=== PATIENT | female | born 1970 | race African-American/Black ===

== ENCOUNTER 2019-10-14 08:08 | Emergency (ER) | payer BC, SELFPAY ==
[2019-10-14 08:20] VITALS: BP 124/65; PULSE 68; RESP 16; TEMP 37.2; O2SAT 100
--- NOTE | 2019-10-14 08:28 | ED.ABDPAIN ---
HPI - Abdominal Pain General Chief Complaint: Abdominal Pain Stated Complaint: Abdomen Pain Time Seen by Provider: 10/14/19 08:25 Source: patient and RN notes reviewed Mode of arrival: ambulatory Limitations: no limitations History of Present Illness HPI narrative: Patient presents today complaining of 3-day history of lower abdominal pain that radiates to her low back. Pain has been constant since onset. Denies any urinary symptoms to include dysuria, hematuria, frequency or urgency. Denies fever, nausea, vomiting, diarrhea, constipation. She currently rates her pain 10/10. She has been using OTC pain relieving patches without relief. MD elicited complaint: abdominal pain Related Data Home Medications Medication Instructions Recorded Confirmed Nexium 10/14/19 Allergies Allergy/AdvReac Type Severity Reaction Status Date / Time Sulfa (Sulfonamide Allergy Mild RASH Verified 05/07/15 15:01 Antibiotics) codeine AdvReac Unknown Verified 10/14/19 08:32 Review of Systems Review of Systems: Narrative: CONSTITUTIONAL: Denies body aches, fever, chills, or sweats. EYES: Denies visual changes, redness, or discharge. ENT: Denies rhinorrhea, congestion, sore throat, or otalgia. CARDIOVASCULAR: Denies chest pain, palpitations, or edema. RESPIRATORY: Denies cough or dyspnea. GASTROINTESTINAL: Denies nausea, vomiting, or diarrhea.+ Abdominal pain GENITOURINARY: Denies dysuria or hematuria. SKIN: Denies rash, itching, or wounds. MUSCULOSKELETAL: Denies back pain, joint pain, or myalgia. NEUROLOGIC: Denies headache, numbness, tingling, or weakness. PSYCH: Denies depression or anxiety. PMFSH Social History Social History Gender identity (if verbalized by the patient): Female Comments At time of signature, I have reviewed and agree with nursing past medical, surgical, social and family history unless otherwise noted. Please see nursing chart for further information. There is no relevant family history pertinent to the presenting complaint Exam Narrative: Exam Narrative: GENERAL: Well-appearing, well-nourished, and in no acute distress. HEAD: Normocephalic, atraumatic. EYES: EOMI. No redness or drainage. Conjunctivae normal. ENT: Mucous membranes pink and moist. NECK: Normal AROM. CHEST: No respiratory distress. Clear to auscultation. HEART: Regular rate and rhythm. No murmur appreciated. Normal peripheral pulses. ABDOMEN: Soft, nondistended, normal active bowel sounds. Tenderness with guarding and rebound to the suprapubic area and right lower quadrant.-CVAT MUSCULOSKELETAL: No bony tenderness. EXTREMITIES: Normal range of motion. No edema. SKIN: Warm, dry, no rash. NEURO: No focal deficits. Alert and oriented x3. Gait steady. PSYCH: Normal affect. No signs of depression or anxiety. Course Vital Signs Vital signs: Vital Signs Temperature 98.9 F 10/14/19 08:20 Pulse Rate 68 10/14/19 08:20 Respiratory Rate 16 10/14/19 08:20 Blood Pressure 124/65 10/14/19 08:20 Pulse Oximetry 100 10/14/19 08:20 Temperature 98.9 F 10/14/19 08:20 Pulse Rate 68 10/14/19 08:20 Respiratory Rate 16 10/14/19 08:20 Blood Pressure 124/65 10/14/19 08:20 Pulse Oximetry 100 10/14/19 08:20 Reviewed Transfer Transfered to: Iván Transfer rationale: Abdominal pain Accepting physician: Maria Fernanda Rahman PA-C [facility] - Abdominal Pain Differential Diagnosis Differential diagnosis: Likely abdominal pain, acute appendicitis and other (Ruptured ovarian cyst, UTI, ovarian torsion) Lab Data Attestation: I reviewed the patient's lab results. Labs: Urine Glucose Negative Reference Range: Negative Urine Bilirubin Negative Reference Range: Negative Urine Ketone Negative Reference Range: Negative Urine Specific [place] 1.025 Reference Range:1.001-1.035 Urine Blood Negative
== END 2019-10-14 08:40 | disposition short-term general hospital (02) ==
PROVIDERS: Emergency Provider Nurse Practitioner
DX: R10.30 Lower abdominal pain, unspecified (principal); K21.9 Gastro-esophageal reflux disease without esophagitis
CPT/HCPCS: 81003; 99212; G0463

== ENCOUNTER 2019-10-14 08:56 | Emergency (ER) | payer BC, SELFPAY ==
--- NOTE | ~2019-10-14 | CT_ITS ---
EXAMINATION: CT abdomen pelvis w con EXAM DATE: 10/14/2019 10:38 INDICATION: Abdominal, left lower quadrant pain. TECHNIQUE: Spiral CT of the abdomen and pelvis was performed following intravenous injection of 100 m L Omnipaque 350. Axial, coronal and sagittal images were reviewed. The dose-length product (DLP) fo r this examination was 280.98 mGy-cm. The exposure was tailored according to patient size (auto mA e xposure control), and iterative reconstruction (ASIR) was used as additional dose reduction technique . Comparison is made to prior examination from 02/01/2017. FINDINGS: The liver, spleen, adrenal glands and pancreas are unremarkable. Gallbladder is unremarkab le. No biliary obstruction. Portal and splenic veins are patent. Kidneys enhance symmetrically. T here is no hydronephrosis. There are multiple degenerating fibroids, without uterus significantly en larged, measuring 16 cm in craniocaudal dimension by 11 cm diameter. The gonadal veins are enlarged t o accommodate this fibroid uterus. The ovaries appear normal in size. The bladder is unremarkable. Tr mindy free pelvic fluid. There is no retroperitoneal or pelvic lymphadenopathy. The appendix is normal. The stomach and small bowel are unremarkable. There is expected amount of c olonic stool. No free intraperitoneal gas. The heart is normal in size. There are no pericardial or pleural effusions. The lung bases are unremarkable. The bones are unremarkable. IMPRESSION: 1. Significantly enlarged uterus with multiple degenerating fibroids, dilated gonadal veins. 2. No acute intra-abdominal findings. Reviewed, dictated and finalized at location A. 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
--- NOTE | 2019-10-14 09:07 | ED.ABDPAIN ---
HPI - Abdominal Pain General Chief Complaint: Abdominal Pain Stated Complaint: Back and low abd pain Time Seen by Provider: 10/14/19 09:03 Source: patient Mode of arrival: ambulatory Limitations: no limitations History of Present Illness HPI narrative: Pt is a 48 y/o female who presents to the ED with c/o progressively worsening, lower ABD pain that started Sunday (3 days ago). She reports associated lower back pain. She also notes that she had chills and sweats this morning. Pt states that she had this pain when she was Dx with a UTI in the past. She notes that she had fibroids in her uterus that she has chronic pain from. Her chronic pain is normally alleviated by taking pain medication. Pt has taken pain medication with no relief. She has OTC pain patches on as well. Pt denies fever, vomiting, dysuria, diarrhea, constipation, hematuria, frequency, CP, cough, or congestion. MD elicited complaint: abdominal pain Onset (ago): day(s) (3) Pain Consistency: other (progressively worsening) Location: other (lower ABD) Relieving factors: nothing Associated symptoms: other (lower back pain, chills, sweats) Treatments prior to arrival: other (pain medicine) Related Data Home Medications Medication Instructions Recorded Confirmed Nexium 40 mg PO DAILY 10/14/19 10/14/19 Allergies Allergy/AdvReac Type Severity Reaction Status Date / Time Sulfa (Sulfonamide Allergy Mild RASH Verified 10/14/19 09:19 Antibiotics) codeine AdvReac Unknown Verified 10/14/19 09:19 Review of Systems Review of Systems: Narrative: CONSTITUTIONAL: Denies fever. Reports chills and sweats. ENT: Denies congestion CARDIOVASCULAR: Denies chest pain. RESPIRATORY: Denies cough. GASTROINTESTINAL: Reports lower abdominal pain. Denies vomiting, constipation, or diarrhea. GENITOURINARY: Denies dysuria, frequency, or hematuria. MUSCULOSKELETAL: Reports lower back pain. All systems reviewed & are unremarkable except as noted in HPI and below PMFSH Past Medical History Medical History (Updated 10/14/19 @ 11:18 by Ciera Keith MD) Fibroid uterus GERD (gastroesophageal reflux disease) Seasonal allergies UTI (urinary tract infection) Surgical History Surgical History (Updated 10/14/19 @ 09:19 by Cuauhtemoc Harmon) H/O section Social History Social History (Updated 10/14/19 @ 09:19 by Cuauhtemoc Harmon) Smoking status: Never smoker Gender identity (if verbalized by the patient): Female Exam Narrative: Exam Narrative: GENERAL: Well-appearing, well-nourished, and in no acute distress. HEAD: Normocephalic, atraumatic. EYES: PERRLA and EOMI. ENT: Nares clear, no rhinorrhea or epistaxis. Mucous membranes moist. NECK: Supple. CHEST: Clear to auscultation. No respiratory distress. HEART: Tachycardic with regular rhythm. No murmur heard. Normal peripheral pulses. ABDOMEN: Soft, suprapubic tenderness, nondistended, normal active bowel sounds. No flank tenderness. Thorax: No midline cervical, thoracic, lumbar spinal tenderness. No step-offs or deformities. EXTREMITIES: Normal range of motion. No edema. SKIN: Warm, dry, no rash. NEURO: No focal deficits. Alert and oriented X3. EOMs intact without nystagmus. No facial droop/asymmetry noted bilaterally. Grimace intact. Intact sensation in face. Hearing intact bilaterally. Shoulder shrug intact. Strength 5/5 bilateral upper extremities. Strength 5/5 bilateral lower extremities. Reflexes 2+ patellar. Heel to ferrer intact bilaterally. Ambulatory with a narrow base, steady gait, no ataxia. Course Consultations Consultation #1: Discussed case with Dr. Hayes the principal bioinformatics specialist. Agrees to see pt as outpatient or inpatient. Recommends obtaining anemia panel. Date: 10/14/19 Time: 11:17 Vital Signs Vital signs: Vital Signs Temperature 36.7 C 10/14/19 09:17 Pulse Rate 104 H 10/14/19 09:17 Respiratory Rate 20 10/14/19 09:17 Blood Pressure 121/69 10/14/19 09:17 Pulse Oximetry 100 10/14/19 09:17
[2019-10-14 09:17] VITALS: BP 121/69; PULSE 104; RESP 20; TEMP 36.7; O2SAT 100
[2019-10-14] MEDS: ONDANSETRON INJ 4 MG/2 ML VIAL IV PUSH (09:37)
[2019-10-14] MEDS: MORPHINE SULFATE 4 MG/ML INJ 2 MG IV PUSH (09:37)
[2019-10-14] MEDS: SODIUM CHLORIDE 0.9% IV 2,000 ML 999 ML IV CONT (09:38)
[2019-10-14 09:53] LABS: Basophils Percent Auto 0.3 % (0.2-1.2); Eosinophils Percent Auto 0.3 % (0-4.4); Hematocrit 25.6 % (37.0-47.0); Hemoglobin 7.1 g/dL (12.0-15.0); Immature Granulocyte Absolute 0.06 K/mm3 (0.00-0.031); Immature Granulocyte Percent A 0.5 % (0-0.5); Immature Platelet Fraction Pct 4.9 % (0.9-11.2); Lymphocytes Absolute Auto 2.18 K/mm3 (0.9-3.2); Lymphocytes Percent Auto 17.5 % (18.3-44.2); Mean Corpuscular HGB Conc 27.7 g/dl (32-36); Mean Corpuscular Hemoglobin 19.2 pg (26-34); Mean Corpuscular Volume 69.2 fl (80-100); Mean Platelet Volume 11.2 fl (7.4-10.4); Neutrophils Absolute Auto 9.2 K/mm3 (1.3-6.7); Neutrophils Percent Auto 73.4 % (45.5-73.1); Platelet Count Result 249 k/mm3 (150-375); Red Cell Distribution Width 18.6 % (11.5-14.5); White Blood Count 12.5 K/mm3 (4.5-10.0)
[2019-10-14 10:03] LABS: Lactic Acid Reflex 0.6 mmol/L (0.7-2.1)
[2019-10-14 10:04] LABS: Alanine Aminotransferase 21 U/L (4-35); Albumin Level 3.6 g/dL (3.5-5.1); Alkaline Phosphatase 65 U/L (38-126); Aspartate Amino Transferase 26 U/L (14-36); Bilirubin,Total 0.2 mg/dL (0.2-1.3); Blood Urea Nitrogen 9 mg/dL (7-17); Calcium 8.5 mg/dL (8.4-10.2); Carbon Dioxide 24 mmol/L (22-30); Chloride 100 mmol/L (98-107); Estimated CRCL calculation 76 ml/min; Estimated Glomerular Filt Rate > 60; Glucose 106 mg/dL (65-105); Lipase 103 U/L (23-300); Potassium 3.2 mmol/L (3.4-5.0); Sodium 134 mmol/L (137-145)
[2019-10-14 10:20] LABS: Hypochromasia 2+ (NORMAL); Microcytosis 1+ (NORMAL); Ovalocytes 1+ (NORMAL); Platelet Estimate Adequate (Adequate)
[2019-10-14 11:03] VITALS: BP 104/61; PULSE 92; RESP 18; O2SAT 100
[2019-10-14 11:35] LABS: Add Urine Microscopic? YES; Appearance Urine Clear (Clear); Bacteria Urine Trace /hpf; Bilirubin Urine Negative (Negative); Blood Urine Negative (Negative); Color Urine Straw (Yellow); Glucose Urine UA Negative (Negative); Ketones Urine Negative (Negative); Leukocyte Esterase Ur Trace LEU/UL (Negative); Mucus Urine Rare /lpf; Nitrate Urine Negative (Negative); Protein Urine Negative (Negative); RBC Urine 0-2 /hpf (0-2); Specific Grav Ur 1.009 (1.001-1.035); Squamous Epithelial Cell Urine Occasional /hpf (Few); Urobilinogen Urine Negative mg/dL (<2.0); WBC Urine 0-3 /hpf
[2019-10-14 11:38] LABS: Iron 18 ug/dL (37-170)
[2019-10-14 11:47] LABS: Percent Iron Saturation 5 % (20-50)
[2019-10-14 12:15] LABS: Ferritin 5.97 ng/mL (6.24-137)
[2019-10-14 12:16] VITALS: BP 101/69; PULSE 90; RESP 18; O2SAT 98
[2019-10-14 12:47] LABS: Folic Acid 13.3 ng/mL (2.76->20)
== END 2019-10-14 12:28 | disposition home or self-care (01) ==
PROVIDERS: Emergency Provider Emergency Medicine
DX: D64.9 Anemia, unspecified (principal); K21.9 Gastro-esophageal reflux disease without esophagitis; Z87.440 Personal history of urinary (tract) infections
CPT/HCPCS: 36415; 74177; 80053; 81001; 82607; 82728; 82746; 83540; 83550; 83605; 83690; 84443; 85025; 85055; 96365; 96375; 99284; J0131; J2270; J2405; J7030; Q9967

== ENCOUNTER 2020-01-01 10:16 | Outpatient (CLI) | payer BC, SELFPAY ==
--- NOTE | ~2020-01-01 | MM_ITS ---
EXAMINATION: MM screening [facility] BI w eladio HISTORY: Screening mammogram TECHNIQUE: Craniocaudal and mediolateral oblique 3-D tomosynthesis images were obtained and synthetic 2-D images were generated. CAD analysis was submitted and interpreted. COMPARISON: 11/27/2018, 02/13/2017, 02/02/2016 BREAST PARENCHYMAL COMPOSITION: The breasts are heterogeneously dense, which may obscure small masses . FINDINGS: There is no evidence of suspicious mass, calcification, or architectural distortion to sugg est malignancy in either breast. There has been no suspicious interval change. IMPRESSION: 1. No mammographic evidence of malignancy. 2. Recommend routine screening mammography in one year. BI-RADS Category 1: Negative Reviewed, dictated and finalized at location A.
== END 2020-01-01 10:17 | disposition home or self-care (01) ==
PROVIDERS: Visit Provider Obstetrics & Gynecology
DX: Z12.31 Encounter for screening mammogram for malignant neoplasm of breast (principal)
CPT/HCPCS: 77063; 77067

== ENCOUNTER 2021-02-21 10:28 | Outpatient (CLI) | payer BC, SELFPAY ==
--- NOTE | ~2021-02-21 | MM_ITS ---
EXAMINATION: MM screening [facility] BI w eladio HISTORY: Screening mammogram TECHNIQUE: Craniocaudal and mediolateral oblique 3-D tomosynthesis images were obtained and synthetic 2-D images were generated. CAD analysis was submitted and interpreted. COMPARISON: 01/01/2020, 11/27/2018, 02/13/2017 BREAST PARENCHYMAL COMPOSITION: The breasts are heterogeneously dense, which may obscure small masses . FINDINGS: There is no evidence of suspicious mass, calcification, or architectural distortion to sugg est malignancy in either breast. There has been no suspicious interval change. IMPRESSION: 1. No mammographic evidence of malignancy. 2. Recommend routine screening mammography in one year. BI-RADS Category 1: Negative Reviewed, dictated and finalized at location A.
== END 2021-02-21 10:29 | disposition home or self-care (01) ==
LOC: ANHIMG 10:32
PROVIDERS: Visit Provider Advanced Practice Midwife
DX: Z12.31 Encounter for screening mammogram for malignant neoplasm of breast (principal)
CPT/HCPCS: 77063; 77067

== ENCOUNTER 2022-08-08 15:01 | Outpatient (CLI) | payer BC, SELFPAY ==
--- NOTE | ~2022-08-08 | MM_ITS ---
EXAMINATION: MM screening [facility] BI w eladio HISTORY: Screening mammogram TECHNIQUE: Craniocaudal and mediolateral oblique 3-D tomosynthesis images were obtained and synthetic 2-D images were generated. CAD analysis was submitted and interpreted. COMPARISON: 02/21/2021, 01/01/2020, 11/27/2018 BREAST PARENCHYMAL COMPOSITION: The breasts are heterogeneously dense, which may obscure small masses . FINDINGS: No suspicious mass, calcification, or architectural distortion are identified in either loi ast to suggest malignancy. There has been no suspicious interval change. IMPRESSION: 1. No mammographic evidence of malignancy. 2. Recommend routine screening mammography in one year. BI-RADS Category 1: Negative Reviewed, dictated and finalized at location A. 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
== END 2022-08-08 15:02 | disposition home or self-care (01) ==
PROVIDERS: PCP Nurse Practitioner; Visit Provider Nurse Practitioner
DX: Z12.31 Encounter for screening mammogram for malignant neoplasm of breast (principal)
CPT/HCPCS: 77063; 77067

== ENCOUNTER 2024-01-28 07:57 | Outpatient (CLI) | payer OTHER, SELFPAY ==
--- NOTE | ~2024-01-28 | MM_ITS ---
EXAMINATION: MM screening [facility] w eladio HISTORY: Screening TECHNIQUE: Craniocaudal and mediolateral oblique 3-D tomosynthesis images were obtained and synthetic 2-D images were generated. CAD analysis was submitted and interpreted. COMPARISON: Comparison to multiple prior studies sequentially, with oldest reviewed study dated 02/01.. BREAST PARENCHYMAL COMPOSITION: Dense: The breasts are heterogeneously dense, which may obscure small masses FINDINGS: There is no evidence of suspicious mass, calcification, or architectural distortion to sugg est malignancy in either breast. There has been no suspicious interval change. IMPRESSION: 1. No mammographic evidence of malignancy. 2. Recommend routine screening mammography in one year. BI-RADS Category 1: Negative Reviewed, dictated and finalized at location A.
== END 2024-01-28 07:58 | disposition home or self-care (01) ==
LOC: ANHIMG 08:00
PROVIDERS: PCP Physician Assistant; Visit Provider Physician Assistant
DX: Z12.31 Encounter for screening mammogram for malignant neoplasm of breast (principal)
CPT/HCPCS: 77063; 77067

== ENCOUNTER 2024-04-23 08:29 | Emergency (ER) | payer OTHER, SELFPAY ==
--- NOTE | ~2024-04-23 | XR_ITS ---
EXAMINATION: XR chest 2V 04/23/2024 09:11 INDICATION: Chest pain. History of reflux. PROCEDURE: 2 view chest COMPARISON: No prior studies for comparison. FINDINGS: The lungs are clear. The cardiomediastinal silhouette is within normal limits. There are no pleural effusions. There is no pneumothorax suspected. IMPRESSION: 1: NO ACUTE CARDIOPULMONARY DISEASE. Reviewed, dictated and finalized at location B.
--- NOTE | 2024-04-23 08:30 | ECG_ITS ---
Test Date: 2024-04-23 08:38:00 Measurements Intervals [place] Rate: 98 P: 35 NE: 166 QRS: 5 QRSD: 68 T: -6 QT: 358 QTc: 459 Interpretive Statements SINUS RHYTHM LOW QRS VOLTAGE IN PRECORDIAL LEADS [QRS DEFLECTION < 1.0 mV IN CHEST LEADS] No previous ECG available for comparison Electronically Signed On 04-23-2024 09:30:51 CDT by Sharon Jimenez M.D.
[2024-04-23 08:34] VITALS: BP 132/87; PULSE 97; RESP 20; TEMP 36.6; O2SAT 100
[2024-04-23 08:39] VITALS: PULSE 89; O2SAT 100
[2024-04-23 08:43] LABS: Basophils Percent Auto 0.3 % (0.2-1.2); Eosinophils Absolute Auto 0.1 K/mm3 (0-0.3); Eosinophils Percent Auto 1.7 % (0-4.4); Hematocrit 43.9 % (37.0-47.0); Hemoglobin 15.3 g/dL (12.0-15.0); Immature Granulocyte Absolute 0.02 K/mm3 (0.00-0.031); Immature Granulocyte Percent A 0.3 % (0-0.5); Lymphocytes Absolute Auto 3.01 K/mm3 (0.9-3.2); Lymphocytes Percent Auto 40.4 % (18.3-44.2); Mean Corpuscular HGB Conc 34.9 g/dl (32-36); Mean Corpuscular Hemoglobin 31.2 pg (26-34); Mean Corpuscular Volume 89.4 fl (80-100); Monocytes Absolute Auto 0.5 K/mm3 (0.1-0.6); Monocytes Percent Auto 6.2 % (2.6-8.5); Neutrophils Absolute Auto 3.8 K/mm3 (1.3-6.7); Neutrophils Percent Auto 51.1 % (45.5-73.1); Platelet Count Result 210 k/mm3 (150-375); Red Blood Count 4.91 M/mm3 (4.2-5.4); Red Cell Distribution Width 11.9 % (11.5-14.5); White Blood Count 7.5 K/mm3 (4.5-10.0)
[2024-04-23 08:53] LABS: INR 0.9; Prothrombin Time 12.5 Seconds (11.1-14.7)
[2024-04-23 08:54] LABS: Partial Thromboplastin Time 28.5 Seconds (22.3-36.8)
[2024-04-23 08:57] LABS: Alanine Aminotransferase 22 U/L (6-35); Albumin Level 4.4 g/dL (3.5-5.1); Alkaline Phosphatase 73 U/L (38-126); Anion Gap 12 mmol/L (4-12); Aspartate Amino Transferase 29 U/L (14-36); Bilirubin,Total 0.5 mg/dL (0.2-1.3); Blood Urea Nitrogen 12 mg/dL (7-17); Calcium 9.4 mg/dL (8.4-10.2); Carbon Dioxide 26 mmol/L (22-30); Chloride 100 mmol/L (98-107); Estimated CRCL calculation 60 ml/min; Estimated Glomerular Filt Rate > 60; Glucose 126 mg/dL (65-110); Lipase 161 U/L (23-300); Potassium 3.3 mmol/L (3.4-5.0); Sodium 138 mmol/L (137-145)
[2024-04-23 09:01] VITALS: BP 132/84; PULSE 79; RESP 20; O2SAT 100
[2024-04-23 09:09] LABS: Troponin I < 0.012 ng/mL (0.000-0.034)
[2024-04-23 09:36] LABS: D Dimer < 0.27 ug/mL (<0.48)
[2024-04-23 09:45] LABS: NT Pro B Type Natriuretic Pept < 20 pg/mL (19.9-100)
--- NOTE | 2024-04-23 09:53 | ED.CHESTPAIN ---
HPI - Chest Pain General Chief Complaint: Chest Pain Stated Complaint: CHEST PAIN Time Seen by Provider: 04/23/24 09:01 Source: patient Mode of arrival: ambulatory Limitations: no limitations History of Present Illness HPI narrative: This is a 53-year-old female With PMH of GERD, uterine fibroids who presents to the ED with chief complaint of chest pain this started around 0730 this morning. States that she let her dog outside for a walk in a started shortly after. States that when she bent over, she felt like she had a lot of gas in her abdomen and this is what set off the chest pain. No association of the pain with exertion. States the pain is in the middle of the chest and radiates to the left arm. Described pain as dull. No relief with antacid an aspirin prior to arrival. Denies fevers, chills, recent illness, shortness of breath, cough, back pain, numbness, weakness. Related Data Home Medications Medication Instructions Recorded Confirmed Nexium 40 mg PO DAILY 10/14/19 10/14/19 Allergies Allergy/AdvReac Type Severity Reaction Status Date / Time Sulfa (Sulfonamide Allergy Mild RASH Verified 04/23/24 08:43 Antibiotics) codeine AdvReac Unknown Verified 04/23/24 08:43 Review of Systems Review of Systems: All systems as dictated in [facility] Past Medical History Medical History (Updated 04/23/24 @ 12:06 by Dmitry Montgomery PA-C) Fibroid uterus GERD (gastroesophageal reflux disease) Seasonal allergies UTI (urinary tract infection) Surgical History Surgical History (Updated 10/14/19 @ 09:19 by Cuauhtemoc Harmon) H/O section Social History Social History (Updated 10/14/19 @ 09:19 by Cuauhtemoc Harmon) Smoking status: Never smoker Gender identity (if verbalized by the patient): Female Exam Narrative: GENERAL: Well-appearing, well-nourished, and in no acute distress. HEAD: Normocephalic, atraumatic. EYES: PERRLA and EOMI. ENT: Nares clear, no rhinorrhea or epistaxis. Mucous membranes moist. Oropharynx without tonsillar hypertrophy exudate or other lesions. NECK: Supple. No adenopathy or masses. CHEST: No respiratory distress. Clear to auscultation. No wheezes rales or rhonchi HEART: Regular rate and rhythm. No murmur heard. Normal peripheral pulses. ABDOMEN: Soft, nontender, nondistended, normal active bowel sounds. MSK: Normal range of motion. No edema. SKIN: Warm, dry, no rash. NEURO: Alert and oriented x4. No focal deficits. PSYCH: Normal mood and affect. Course Vital Signs Vital signs: Vital Signs Temperature 97.8 F 04/23/24 08:34 Pulse Rate 97 04/23/24 08:34 Respiratory Rate 20 04/23/24 08:34 Blood Pressure 132/87 04/23/24 08:34 Pulse Oximetry 100 04/23/24 08:34 Oxygen Delivery Room Air 04/23/24 08:34 Temperature 98.4 F 04/23/24 11:25 Pulse Rate 70 04/23/24 12:00 Respiratory Rate 13 04/23/24 12:00 Blood Pressure 123/77 04/23/24 11:25 Pulse Oximetry 99 04/23/24 12:00 Oxygen Delivery Room Air 04/23/24 08:39 MDM - Chest Pain MDM Narrative Medical decision making narrative: This is a 53-year-old female presenting for chief complaint of chest pain and epigastric discomfort. Vitals are normal. Exam is benign overall. ECG shows nonspecific T-wave changes but no ST depression or acute ischemia. Lab work today is grossly unremarkable. D-dimer negative and troponins are negative at 0 and 3 hours. Chest x-ray normal. Repeat ECG is the same. No increasing repeat chest pain. Heart score is 3. Pt will be discharged in stable condition. Return precautions given and supportive measures discussed. Pt is understanding and agreeable with plan for discharge and follow-up with PCP. Lab Data 04/23/24 08:37 04/23/24 08:37 Labs: Lab Results 04/23/24 04/23/24 Range/Units 08:37 11:12 WBC 7.5 (4.5-10.0) K/mm3 RBC 4.91 (4.2-5.4) M/mm3 Hgb 15.3 H D (12.0-15.0) g/dL
--- NOTE | 2024-04-23 11:14 | ECG_ITS ---
Test Date: 2024-04-23 11:16:00 Measurements Intervals [place] Rate: 65 P: 43 [place]: 165 QRS: 4 QRSD: 73 T: -13 QT: 406 QTc: 425 Interpretive Statements SINUS RHYTHM LOW QRS VOLTAGE IN PRECORDIAL LEADS [QRS DEFLECTION < 1.0 mV IN CHEST LEADS] Compared to ECG 04/23/2024 08:38:00 No significant changes Electronically Signed On 04-23-2024 13:04:33 CDT by Sharon Jimenez M.D.
[2024-04-23 11:21] VITALS: PULSE 64; RESP 16; O2SAT 100
[2024-04-23 11:25] VITALS: BP 123/77; PULSE 65; RESP 18; TEMP 36.9; O2SAT 100
[2024-04-23] MEDS: FAMOTIDINE 20 MG/2 ML VIAL IV PUSH (11:32)
[2024-04-23 11:50] LABS: Troponin I < 0.012 ng/mL (0.000-0.034)
[2024-04-23 12:00] VITALS: PULSE 70; RESP 13; O2SAT 99
== END 2024-04-23 12:18 | disposition home or self-care (01) ==
PROVIDERS: Emergency Medicine; Emergency Provider Physician Assistant; PCP Physician Assistant
DX: R07.89 Other chest pain (principal); K21.9 Gastro-esophageal reflux disease without esophagitis; Z87.440 Personal history of urinary (tract) infections
CPT/HCPCS: 36415; 71046; 80053; 83690; 83880; 84484; 85025; 85380; 85610; 85730; 93005; 96374; 99284

== ENCOUNTER 2025-06-30 14:02 | Outpatient (CLI) | payer OTHER, SELFPAY ==
--- NOTE | ~2025-06-30 | MM_ITS ---
EXAMINATION: MM screening [facility] BI w eladio HISTORY: Screening TECHNIQUE: Craniocaudal and mediolateral oblique 3-D tomosynthesis images were obtained and synthetic 2-D images were generated. CAD analysis was submitted and interpreted. COMPARISON: Comparison to multiple prior studies sequentially, with oldest reviewed study dated 02/13/2017. BREAST PARENCHYMAL COMPOSITION: Not dense: There are scattered areas of fibroglandular density. FINDINGS: There is no evidence of suspicious mass, calcification, or architectural distortion to suggest malignancy in either breast. There has been no suspicious interval change. IMPRESSION: 1. No mammographic evidence of malignancy. 2. Recommend routine screening mammography in one year. BI-RADS Category 1: Negative Reviewed, dictated and finalized at location O.
--- OUTSIDE RECORDS SUMMARY | 2025-06-30 17:30 | XMS_ITS | Data Portability ---
Author Organization [facility] Address [address] [place] [place] [address] [place] [address] Care Team Providers Care Interactive Media Marketing Specialist Name Role Phone SIDNEY CHRISTIAN Primary Care Provider [phone] Assessment Encounter Date Assessment Date Assessment LastModified by Organization Details LastModified Time 12/29/2019 12/29/2019 Annual gynecological exam performed. Patient will come back in a year unless there are new symptoms. Pap done. She has mammogram scheduled in 3 days. Declines contraception as she is not sexually active [email or web address] Not available 12/29/2019 10:26:35 02/08/2022 02/08/2022 Annual gynecological exam performed. Patient will come back in a year unless there are new symptoms. Not available 02/07/2022 15:03:53 Plan of Treatment Reminders Order Date Submit Date Provider Last Modified By Organization Details Last Modified Time Details Appointments None recorded. Lab hormone panel, serum or plasma 2021 022 [facility] (Lab), [address] [place], [address], 2 06:07:12 TSH, serum or plasma 2021 022 [facility] (Lab), [address] [place], [address], 2 06:07:12 urinalysis , dipstick 2019 020 [facility], [place], [address], 0 17:24:30 Referral None recorded. Procedures None recorded. Surgeries None recorded. Imaging MAMMO, screening, bilateral 2021 022 BREANNA [facility], [address], [place], [address], 2 11:42:37 Medication Orders None recorded. Patient TargetsNo targets recorded. Patient InstructionsNo instructions recorded. Reason for Referral None Reported. Results Created Date Observation Date Name Description Value Unit Range Abnormal Flag Note LastModifiedBy Organization Detail LastModifiedTime 12/29/19 20 12/30/2019 pap, LB Pap test thin prep Negati ve for Intrae pithel ial Lesion or Malign cherise normal ACCES LISBETH #: [id number] Sourc e: Cervi maverick/E ndoce rvica l LMP: 09/10 Date Taken : 12/28 Speci men Type: ThinP rep Vial Date Repor parish: 2019 Clini maverick Data: Cytot ech: Merna Andradekle y, CT( CP) Date Repor parish: 2019 Speci men Adequ acy: Satis facto ry for evalu ation No endoc ervic al/tr ansfo rmati on zone compo nent prese nt Gener al Categ oriza tion: NEGAT ONEIL FOR INTRA EPITH ELIAL LESIO N OR MALIG KEN This speci men has been tato zed by the ThinP rep Imagi ng Syste m, an inter activ e compu ter syste m which rusty ts the lab in the scree celestino of ThinP rep Pap Test slide s. Follo wing imagi ng, the slide was revie wed by a Cytot echno logis t and/o r Patho logis t. D N A A S S A Y S R E P O R T TEST NAME RESUL TS ----- ---- ----- -- HPV High Risk Scree n (TMA) ThinP rep Vial The human papil lomav irus (HPV) High Risk Screjoleen n is an FDA-a pprov ed in-vi tro ampli fied nucle ic acid test for the quali tativ e detec tion of E6/E7 viral mRNA. Resul ts shoul d be corre lated with patie nt prese ntati on, histo ry, cervi maverick cytol ogy and other clini maverick and labor atory findi ngs. See https ://Baoku/s ites/ defau lt/fi 018-0 3/- 95920 _002_ .pd f for furth er infor matio n. Test perfo rmed by [facility], d/b/a [facility], [address] [facility], [place] [address] , Kayode Babcock ra, , Labor atory Dire tor. HPV High Risk *HPV NOT DETEC PARISH (TYPE S 16, 18, 31, 33, 35, 39, 45, 51, 52, 56, 58, 59, 66, 68) *HPV: The human papil lomav irus (HPV) High Risk Sonya rose is an FDA-a pprov ed in-vi tro ampli fied nucle ic acid test for the quali tativ e detec tion of E6/E7 viral mRNA. Resul herrera tolentino d be corre lated with patie nt prese ntati on, histo ry, cervi maverick cytol ogy and other clini maverick and labor atory findi ngs. See https ://Baoku/s ites/ defau lt/fi -0 3/- 02607 _002_ 01.pd f for furth er infor matio n. Test perfo rmed by [employer] [facility], d/b/a Rosa Maria roup, [address] [facility], [place] [address] , Kayode Babcock ra, DO, Labor atory Dire tor. End of Repor t Techn ical servi keegan provi ded by [employer] [facility], d/b/a Brit[facility] r[facility], [address] [place] [address] Cortez Betancourt MD, Labor atory Direc tor. Case revie wed and diagn osis rende red at [facility], [facility], d/b/a [facility], [address] [place], [place] [address] Cortez Betancourt MD, Labor atory Direc tor. CONFI DENTI AL Not Available [facility]) [facility] [address], [place], [address], 12/30/2019 12:20:29 12/29/19 20 12/30/2019 HPV DNA, high- risk HPV high risk NOT DETECT ED normal Not Available [facility] ([facility]) [facility] [address], [place], [address], 12/30/2019 12:20:29 02/09/20 22 02/08/2022 TSH, REFLE X FREE T4 TSH 2.46 uIU/m L 0.30-5 .33 Not Available [facility] (Lab) [address] [facility], [place], [address], 02/09/2022 06:07:12 02/09/20 22 02/08/2022 FSH, LH, ESTRA DIOL estradiol <5.0 pg/mL This assay was perfo rmed using [employer] ratio n reage nts and test kits. Value s obtai eugenia with other assay metho ds or kits canno t be used inter aguero eably . Femal e Estra diol Range s: Folli cular phase 12.4- 233 pg/mL Ovula tion phase 41.0- 398 pg/mL Lutea l phase 22.3- 341 pg/mL Postm enopa usal< 5-138 pg/mL Healt hy Pregn ant Women 1st Trime ster1 54-32 43 pg/mL 2nd Trime ster1 561-2 1280 pg/mL 3rd Trime ster8 525-> 10506 pg/mL Not Available [facility] (Lab) [address], [place], [address], 02/09/2022 06:07:12 02/09/20 22 02/08/2022 FSH, LH, ESTRA DIOL FSH 63.0 mIU/m L This assay was perfo rmed using [employer] ratio n reage nts and test kits. Value s obtai eugenia with other assay metho ds or kits canno t be used inter aguero eably . Femal es Folli cular : 3.5-1 2.5 mIU/m L Ovula tion: 4.7-2 1.5 mIU/m L Lutea l: 1.7-7 .7 mIU/m L Postm enopa use: 25.8- 134.8 mIU/m L Not Available [facility] (Lab) [address] [place], [address], 02/09/2022 06:07:12 02/09/20 22 02/08/2022 FSH, LH, ESTRA DIOL LH 51.6 mIU/m L This assay was perfo rmed using [employer] n reage nts and test kits. Value s obtai eugenia with other assay metho ds or kits canno t be used inter [facility] . Femal es Mid-F ollic ular: 2.4-1 2.6 mIU/m L Mid-C ycle: 14.0- 95.6 mIU/m L Mid-L uteal : 1.0-1 1.4 mIU/m L Postm enopa use: 7.7-5 8.5 mIU/m L Not Available [facility] (Lab) [address] [place], [address], 02/09/2022 06:07:12 02/09/20 22 02/08/2022 IMAGE GUIDE D PAP AND HPV REGAR DLESS image guided Pap, HPV regardless of Pap result SEE RESULT S BELOW CASE REPOR T: Cytol ogy Gynec ologi maverick Repor t Case: [id number] Autho chandu g Provi debora: Adia Gonzalez, SHANI Colle cted: 02/08 1414 Order ing Locat ion: [place] [facility] Recei rosemary: 02/09 0208 First Scree n: Marlene Santamaria , CT Speci men: Scree celestino Pap - Image d, Cervi x STATE MENT OF ADEQU ACY: Satis facto ry for evalu ation Trans forma tion zone compo nent prese nt FINAL DIAGN OSIS: Negat oneil for Intra epith elial Lesio n or Rachid mendez (NIL) . Elect charijosi miranda duane d by Marlene Santamaria , CT on 022 at 10:56 AM ----- ----- ----- ----- ----- ----- ----- ----- ----- ----- ----- ----- ----- ----- ----- ----- ----- ---- HPV RESUL TS: HPV mRNA E6/E7 : No HPV mRNA Detec parish NOTE: This high risk HPV mRNA assay detec ts fourt een high- risk HPV types (16, 18, 31, 33, 35, 39, 45, 51, 52, 56, 58, 59, 66, 68) witho ut diffe renti ation . COMME NT: Note: This speci men was revie wed by a Cytot echno logis t and/o r Patho logis t (as indic ated in this repor t) after evalu ation using the Thinp rep Imagi ng Syste m. CLINI MAVERICK INFOR MATIO N: Menst rual Statu s: LMP (if appli cable ): Clini maverick Histo ry/Pr eviou s Pap: Type of Neopl freedom (if appli cable ): Signi fican t Clini maverick Findi ngs: Other Histo ry: Hormo teresa (if appli cable ): PAP EDUCA MCKINLEY L NOTE: The Pap Test is a scree celestino test with an inher ent false negat oneil rate. Liqui d-bas ed sampl ing may decre ase, but will not elimi wale, false negat oneil resul ts. A negat oneil resul t does not precl ude the prese nce and/o r devel opmen t of disea se, since the prese nce of abnor mal cells in the sampl e depen ds on the locat ion of the lesio n and sampl ing techn ique. Tano nued regul ar scree celestino is the best metho d of cance r preve ntion . If repor parish cytol ogic findi ng do not corre late with physi maverick and/o r histo rical findi ngs, furth er inves tigat ion is recom ernesto d, as clini rickie warra nted. Not Available [facility] (Lab) [address], [place], [address], 02/13/2022 11:59:06 01/08/20 20 01/01/2020 MAMMO , scree celestino, bilat eral No observ ation record ed. [email or web address] Not Available 2019 18:10:03 02/22/20 21 02/21/2021 MAMMO , scree celestino, bilat eral No observ ation record ed. [facility] [address], [place], [address], 02/22/2021 15:43:49 08/23/20 22 MAMMO , scree celestino, bilat eral No observ ation record ed. [facility] [address], [place], [address], 09/06/2022 18:19:06 Result Notes None recorded. Problems Name Problem SNOMED Code Status Onset Date Resolution Date Notes Provider Name and Address Organization Details Recorded Time Anemia 116212488 Active 020 Diandra akbar [facility] 1 14:12:25 Uterine leiomyoma 79962867 Active 020 Diandra akbar [facility] 1 14:12:23 Problem Notes None recorded. Procedures Surgical History Date Name Laterality Status Provider Name and Address Organization Details Recorded Time 0 completed [facility] 01/17/2021 09:37:34 0 Date of Last Pap Smear completed [facility] 01/13/2021 14:15:53 0 Date of Last Mammogram completed [facility] 01/17/2021 09:38:06 0 delivery completed [facility] 01/13/2021 14:28:46 Imaging Results None recorded. Procedure Notes None recorded. Medical Equipment None Reported. Allergies Allergen ID Allergen Name Allergen Category Reaction Reaction Severity Criticality Documentation Date Start Date Code Code System Note Provider Name and Address Organization Details Recorded Time 243 codeine medicatio n Not available Not available Not available 12/26/2019 2670 RxNorm [facility] 0 17:42:53 244 Substance with sulfonami de structure and antibacte rial mechanism of action (substanc e) medicatio n Not available Not available Not available 12/26/2019 59480 8003 SNOMED [facility] 0 17:43:08 Medications Name Sig Start Date Stop Date Status Note LastModified by Organization Details LastModified Time multivitami n capsule 01/13 completed Prescribed Elsewhere: Yes Locati on: [facility] Mod bola By: [email or web address] Encounter DateTime: 12/02/2019 04:07:09 PM Not Available Not Available Not Available vitamin E active Not Available Not Iris ilable Not Available iron active Not Available Not Availa ble Not Available potassium active Not Available Not Iris ilable Not Available black cohosh active Not Available Not Available Not Available multivitami n active Not Available Not Available Not Available Vitamin B6 01/13 completed Not Available Not Available Not Available Vitamin B-6 50 mg capsule active Not Available Not Available Not Available Vitamin B12 active Not Available Not A vailable Not Available Vitals Date Recorded Body height Body mass index (BMI) Body weight Systolic And Diastolic Provider Name and Address Organization Details Last Updated DateTime 12/29/2019 157.48 cm 26.7 kg/m2 14619.49 g 111/74 mm[Hg] Irma Valeropell [facility] 12/29/2019 10:10:48 Date Recorded Body height Body mass index (BMI) Body weight Systolic And Diastolic Provider Name and Address Organization Details Last Updated DateTime 01/17/2021 157.48 cm 26.7 kg/m2 43354.49 g 112/74 mm[Hg] Diandra Gregory [facility] 01/17/2021 09:37:10 Date Recorded Body height Body mass index (BMI) Body weight Systolic And Diastolic Provider Name and Address Organization Details Last Updated DateTime 02/08/2022 157.48 cm 29.4 kg/m2 10166.65 g 127/83 mm[Hg] Lucrecia Helm [facility] 02/08/2022 12:23:25 Social History Question Answer Notes LastModified by [employer] Details LastModified Time Tobacco Smoking Status Never Smoker Not Available [facility] 07/13/[facility] 03:28:11 Are You Blind Or Do You Have Difficulty Seeing? No Information not available 02/08/2022 Are You Deaf Or Do You Have Serious Difficulty Hearing? No Information not available 02/08/2022 What Type Of Diet Are You Following? REGULAR Information not available 02/08/2022 Do You Have Difficulty Walking Or Climbing Stairs? No Information not available 02/08/2022 Sex: Unknown Functional Status Question Answer Note LastModified by [employer] Details LastModified Time What is your level of alcohol consumption? None Information not available 02/08/2022 Are you able to walk independently without assistance or assistive devices? YESWOREST Information not available 02/08/2022 Are you able to care for yourself independently? Yes Information not available 02/08/2022 Do you have difficulty dressing, bathing, grooming, or toileting? No Information not available 02/08/2022 What is your exercise level? Moderate Information not available 02/08/2022 Mental Status None recorded. Family History Relationship Description Onset Age of this Age Resolved Age Notes LastModified by Organization Details LastModified Time Mother Hyperlipidem ia [email or web address] Not available 12/25 17:41:35 Mother Hypertensive disorder [email or web address] Not available 12/25 17:41:48 Maternal Aunt Family history of breast cancer [email or web address] Not available 12/25 17:42:01 Medical History Condition Response Allergies (Food, seasonal, environmental ) Y Other Y Anemia Y Thyroid Problems Y Gynecological History Statement/Question Response Abnormal Pap N Date of Last Mammogram 12/29/2019 Flow Moderate Date of LMP 12/16/2020 Was last menstrual period normal Y STIs/STDs N HPV Vaccine N Duration of Flow (days) 7 Current Control Method None If Post Menopausal, Age at Menopause 47 Are cycles usually normal Y Sexually Active? N Menses Monthly Y Age of first menstrual cycle 12 Date of Last Pap Smear 12/29/2019 Sexual Problems? N Desired Control Method None LMP Approximate 02/09/2020 Obstetrics History GPAL:G 1 P 1 0 0 1 Type Value Full Term 1 Living 1 Total 1 Past Encounters Encounter ID Performer Location Encounter Start Date Encounter Closed Date Diagnosis/Indication Diagnosis SNOMED-CT Code Diagnosis ICD10 Code Diagnosis IMO Codes Diagnosis Note [id number] Elizabeth Carias MD [facility] [address] [address] 12/29/2019 09:59:04 12/29/2019 10:47:49 Adult health examination 071433577 Z00.00 [id number] Magaly Griffin CNM [facility] [address] [address] 01/17/2021 09:28:40 01/17/2021 10:32:17 Gynecologic examination 00657951 Z01.419 Take Calcium with Vitamin D 12-1500mg daily. Do monthly self breast exams. It is advised to get annual flu shot in the fall and she could obtain at [facility] or [facility] take care clinic. If you haven't received the Tdap vaccine in the last 10 years you should obtain one as well. Have mammogram yearly, bone density every 2-3 years and colonoscop y every 5-10 years depending on findings and history. Colonoscop y in the last year and was normal. History of anemia managed by pcp. Engage in daily exercise of low impact aerobic exercise 45-60 minutes 4-5 times weekly. Avoid tobacco and illicit drugs as well as using moderation with alcohol intake less than 1-2 8 oz beverages daily. This lifestyle behavior pattern will lead to less health conditions and longer life span. If BMI greater than 25 weight watchers or dietary consult advised. Questions have been answered. Patient appears to understand instructio ns, but if you have any further questions call or respond to this email. [id number] LYNN Hernández [facility] [address] [address] 02/08/2022 12:14:06 02/08/2022 13:56:58 Screening for malignant neoplasm of breast 354075565 Z12.39 Hot sweats 363064881 R61 Gynecologi c examination 13495861 Z01.419 Take Calcium with Vitamin D 12-1500mg daily. Do monthly self breast exams. It is advised to get annual flu shot in the fall and she could obtain at [facility] or [facility] care clinic. If you haven't received the Tdap vaccine in the last 10 years you should obtain one as well. Have mammogram yearly, bone density every 2-3 years and colonoscop y every 5-10 years depending on findings and history. Engage in daily exercise of low impact aerobic exercise 45-60 minutes 4-5 times weekly. Avoid tobacco and illicit drugs as well as using moderation with alcohol intake less than 1-2 8 oz beverages daily. This lifestyle behavior pattern will lead to less health conditions and longer life span. If BMI greater than 25 weight watchers or dietary consult advised. Questions have been answered. Patient appears to understand instructio ns, but if you have any further questions call or respond to this email WWENo hx of abnormal papsPap done todayMonth ly periods, did miss last months period. She is not sexually active. We discussed likely perimenopa use transition .Has been having hot flashes, taking black and this helps. NAMS handout given to patient and we discussed lifestyle modificati ons. She would like to avoid any medication s for hot flashes at this point.STI testing declinedco [facility] fidelia order given to patientUTD on colonoscop yGenetic testing discussedR TC in 1 year for WWE or sooner if needed Health Concerns Section Related Observation LastModified by Organization Detai ls LastModified Time None Recorded Concern Status LastModified by Organization Details LastModified Time None Recorded Advance Directives Directive None Recorded Payers Insurance Date Sequence Insurance Name Policy Number Policy Caruso Covered Member ID Caruso Member ID Guarantor Name 12/21/2022 1 [place] [id number] 3 Tino Nettles [id number] Notes Date Note Type Note Provider Name and Address Organization Details Recorded Time 0 text/html Annual GYNReported by PatientROS as noted in the HPI She had repeat blood count drawn but will get results at appt. later today. She has not had repeat colonoscopy yet (had anemia and PCP recommended colonoscopy). Periods are regular and not heavy Marilyn Carias raffy [facility] 12/29/2019 10:27:23 1 text/html Annual GYNReported by PatientGenitourinary symptomsFor menstrual cycle, patient reportsnormal menses. For urinary symptoms, patient reportsno hematuriaandno incontinence. For vulva, patient reportsno genital lesion. For vagina, patient reportsnormal vaginal discharge.Breast symptomsFor breast, patient reportsno breast pain,no breast lump, andno nipple discharge.Endocrine symptomsFor sexual complaints, patient reportsno sexual complaints,no pain during intercourse, andnormal libido. For menopausal symptoms, patient reportsno menopausal symptomsandnormal vaginal lubrication.Psychological symptomsFor psychological symptoms, patient reportsno depression,no anxiety, andno pmdd. Magaly akbar, [facility] 01/17/2021 09:59:53 2 text/html Annual GYNReported by PatientGenitourinary symptomsFor menstrual cycle, patient reportsnormal menses. For urinary symptoms, patient reportsno hematuriaandno incontinence. For vulva, patient reportsno genital lesion. For vagina, patient reportsnormal vaginal discharge.Breast symptomsFor breast, patient reportsno breast pain,no breast lump, andno nipple discharge.Endocrine symptomsFor sexual complaints, patient reportsno sexual complaints,no pain during intercourse, andnormal libido. For menopausal symptoms, patient reportsno menopausal symptomsandnormal vaginal lubrication.Psychological symptomsFor psychological symptoms, patient reportsno depression,no anxiety, andno pmdd.Preventative measuresFor preventive measures, patient reportsencourage self breast examination,encourage regular exercise,encourage no tobacco use,encourage regular mammograms starting age 40, andneeds to schedule mammogram. LYNN Hernández [address], [place], [address], [facility] 02/08/2022 13:42:27 OBGyn Episode Ob Episode Information Episode Created Date Number of Fetuses Patient Bloodtype Patient rh Status Prepregnancy Weight lbs Domestic Partner Domestic Partner Phone Father Name Powerhouse Operator Status 01/14/20 21 1 CLOSED Fetus Data First Name Last Name Admitted to NICU Weight (g) Sex Living Outcome Pediatric Complications Fetus ID Race Codes Race Delivery Type Full Term [id number] Primary Simeon Calculation Initial Simeon Date Initial Exam Date Initial Exam Provider Initial Ultrasound Date Last Menstrual Period Date Ultra Sound Weeks Gestation 0 Eighteen To Twenty Week Simeon Update Ultra Sound Date Fundal Height At Umbil Quickening Date Ultra Sound Latest Weeks Gestation Final Simeon Confirmed By Final Simeon Confirmed Date Final Simeon Date Ultra Sound Latest Days Gestation 0 0 Menstrual History Last Menstrual Date Menses Monthly On Bcp Conception Prior Menses Frequency Hcg Plus Date Menarche Onset Age Delivery Information Delivery Date Delivery Type Labor Anesthesia Weeks Gestation Incision Type Labor Labor Length Hrs Delivered By Post Complications Tubal Sterilization Discharge Date Comments 0 Discharge Information Feeding Method Contraceptive Method Maternal HG B and HCT Levels
--- OUTSIDE RECORDS SUMMARY | 2025-06-30 17:31 | XMS_ITS | Clinical Summary ---
Author Organization [facility] Address [address] [place] [address] Phone Care Team Providers Care Unload Associate Name Role Phone Xavier Rodríguez Primary Care Provider [phone] David Cortez MD Unavailable [phone] Allergies Active Allergy Reactions Criticality Noted Date Comments Codeine Other (see Comments) 10/27/2019 Sulfa Antibiotics Rash 10/27/2019 Medications Ascorbic Acid (VITAMIN C) 1000 MG Tablet Take by mouth. Active Vitamin B-6 (PYRIDOXINE) 100 MG Tablet Take by mouth. A ctive vitamin b-12 (CYANOCOBALAMIN ) 100 MCG Tablet Take 100 mcg by mouth daily. Active glucosamine-cho ndroitin 500-400 MG Capsule Take 1 Cap by mouth 3 times daily. Active vitamin E 100 UNIT Capsule Take 100 Units by mouth daily. Active calcium-vitamin D (OSCAL D) 250-125 MG-UNIT Tablet Take 1 Tab by mouth daily. Active Cholecalciferol (VITAMIN D) 2000 UNIT Tablet Take by mouth. Activ e Magnesium 250 MG Tablet Take by mouth. Activ e POTASSIUM CHLORIDE PO Take by mouth. Act alisia ferrous sulfate 325 (65 Fe) MG Tablet Iron (ferrous sulfate) 325 mg (65 mg iron) tablet Take 1 tablet every other day by oral route for 30 days. Active ergocalciferol (VITAMIN D) 01557 UNIT Capsule Vitamin D2 1,250 mcg (50,000 unit) capsule Take 1 capsule every week by oral route for 30 days. Active esomeprazole (NexIUM) 20 MG CAPSULE DELAYED RELEASE esomeprazole magnesium 20 mg capsule,delayed release Take 1 capsule every day by oral route for 30 days. Active Active Problems Problem Noted Date Diagnosed Date Iron deficiency anemia marta wan to inadequate dietary iron intake 10/27/2019 Family History Medical History Relation Name Comments Diabetes Mother Relation Name Status Comments Mother Social History Tobacco Use Types Packs/Day Years Used Date Smoking Tobacco: Never Smokeless Tobacco: Never Tobacco Cessation:Counseling Given: Not Answered Alcohol Use Standard Drinks/Week Comments Never 0 (1 standard drink = 0.6 oz pur e alcohol) AUDIT-C Answer Date Recorded Frequency of Alcohol Consumption Never 10/27/2019 Average Number of Drinks Not on file 020 Frequency of Binge Drinking Not on file 10/11 PHQ-2 Answer Date Recorded Total Score - Questions 1-9 0 07/11 Education Answer Date Recorded What is the highest level of school you have completed or the highest degree you have received? 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 Not on file Not on file Not on file Last Filed Vital Signs Vital Sign Reading Time Taken Comments Blood Pressure 118/82 07/23/2024 10:50 AM [employer] Pulse 84 07/23/2024 10:50 AM [employer] Temperature 36.6 C (97.8 F) 07/23/2024 10:50 AM [employer] Respiratory Rate 18 07/23/2024 10:50 AM [employer] Oxygen Saturation 98% 07/23/2024 10:50 AM [employer] Inhaled Oxygen Concentration - - Weight 75.5 kg (166 lb 6.4 oz) 07/23/2024 10:50 AM [employer] Height 160 cm (5' 3) 07/23/2024 10:50 AM [employer] Body Mass Index 29.48 07/23/2024 10:50 AM [employer] Plan of Treatment Upcoming Encounters Date Type Department Care Team (Late st Contact Info) Description 07/22/2025 10:45 AM [employer] Lab [facility] [address] [phone] Lab, [facility] 07/22/2025 11:00 AM [employer] Office Visit [facility] [address] [phone] David Cortez MD [address] [place] [phone] Health Maintenance Due Date Last Done Comments Hepatitis C Virus (HCV) Screening 1969 Mammogram 1969 TdaP Immunization 1969 Hepatitis B Immunization (1 of 3 - 19+ 3-dose series) 1988 Pap Smear 1990 Cervical Cancer Screening (CCS) 11/26/1999 HPV/Cotest 11/26/1999 Cologuard 2014 Colonoscopy 2014 Colorectal Cancer Screening 2014 Immunochemical Fecal Occult Blood 2014 Pneumococcal Immunization (5 0+ years) (1 of 1 - PCV) 11/26/2019 Zoster Immunization (1 of 2) 11/26/2019 Influenza Immunization (#1) 2025 07/30/2017 SARS-COV-2 Immunization (2 - season) 2025 11/12/2020 Respiratory Syncytial Virus (RSV) Immunization (Adult) (1 - 1-dose 75+ series) 2044 Human Papillomavirus (HPV) Immunization Aged Out No longer eligible b ased on patient's age to complete this topic Meningococcal Immunization (ACWY) Aged Out No longer eligible based on patient's age to complete this topic Rotavirus Immunization Aged Out No lo nger eligible based on patient's age to complete this topic Insurance [facility] Care Teams Unload Associate Relationship Specialty Start Date End Date Xavier Rodríguez [address] [address] PCP - General Family Medicine 10/27/19 David Cortez MD [address] [id number] Consulting Physician Oncology 10/27/19
--- OUTSIDE RECORDS SUMMARY | 2025-06-30 17:31 | XMS_ITS | Data Portability ---
Author Organization [facility] Address [address] [place] [address] Care Team Providers Care Sofa Inspector Name Role Phone EILEEN GUTIERREZ Primary Care Provider Assessment No assessment recorded. Plan of Treatment Reminders Order Date Submit Date Provider Last Modified By Organization Details Last Modified Time Details Appointments ANY 15 2024 09:30A M PAPI NINO Not available Not available Not available Lab CMP, serum or plasma 2024 025 [facility], [address], [address], [place], [address], 03/19/2025 09:14:14 CBC w/ auto diff 2024 025 [facility], [address] [facility], [facility] [address], [place], [address], 03/19/2025 09:14:16 HbA1c (hemoglob in A1c), blood 2024 025 [facility], [address] [facility], [address], [place], [address], 03/19/2025 09:14:15 TSH + free T4, serum 2024 025 [facility], [address] [facility], [address], [place], [address], 03/19/2025 09:14:12 lipid panel, serum or plasma 2024 025 [facility], [address], [address], [place], [address], 03/19/2025 09:14:13 vitamin D, 25-hydrox y, total, serum 2024 025 [facility], [address], [address], [place], [address], 03/19/2025 09:14:17 HbA1c (hemoglob in A1c), blood 2023 024 [email or web address] In-Office Order, Internal Use Only DO Not Attach Compendium DO Not Attach Compendium, Do Not Delete/merge, [id number] 06/20/2024 09:08:41 CMP, serum or plasma 2023 024 BREANNA [facility], [address], [place], [address], 02/23/2024 08:26:18 lipid panel, serum 2023 024 [facility], [address], [place], [address], 02/23/2024 08:26:17 CBC w/ auto diff 2023 024 [facility], [address], [place], [address], 02/23/2024 08:26:19 TSH + free T4, serum 2023 024 [facility], [address], [place], [address], 02/23/2024 08:26:17 HbA1c (hemoglob in A1c), blood 2023 024 [facility], [address], [place], [address], 02/23/2024 08:26:18 Referral None recorded. Procedures None recorded. Surgeries None recorded. Imaging MAMMO, screening , bilateral 2024 025 [facility] ([facility]), [address], [place], [address], 03/18/2025 15:29:53 US, gallbladd er 2023 024 [email or web address] [facility], [address], [place], [address], 02/29/2024 12:54:23 Medication Orders famotidin e 20 mg tablet 2024 025 [id number], [address], [place], [place], [id number], 12/10/2024 10:37:[address] 10 mg tablet 2023 024 [id number], [address], [place], [place], [id number], 06/20/2024 09:10:09 Patient TargetsNo targets recorded. Patient Instructions Encounter Date Encounter Id Patient Instructions Last Modified By Organization Details Last Modified Time 02/22/2024 [id number] A healthy lifestyle: care instructions [email or web address] Not available 02/22/2024 11:59:39 12/10/2024 [id number] A healthy lifestyle: care instructions [email or web address] Not available 12/10/2024 21:40:20 Reason for Referral None Reported. Results Created Date Observation Date Name Description Value Unit Range Abnormal Flag Note LastModifiedBy Organization Detail LastModifiedTime 02/22/20 24 02/23/2024 TSH+F REE T4 TSH 1.260 uIU/m L 0.450- 4.500 Not Available [facility] ([facility]) [address] [facility], [place], [address], 02/23/2024 08:26:17 02/22/20 24 02/23/2024 TSH+F REE T4 T4,free(dire ct) 1.05 NG/dL 0.82-1 .77 Not Available [facility] ([facility]) [address] [place], [address], 02/23/2024 08:26:17 02/22/20 24 02/23/2024 LIPID PANEL WITH LDL/H DL RATIO cholesterol, total 236 mg/dL 100-19 9 above high normal Not Available [facility] ([facility]) [address] [place], [address], 02/23/2024 08:26:17 02/22/20 24 02/23/2024 LIPID PANEL WITH LDL/H DL RATIO triglyceride s 147 mg/dL 0-149 Not Available [facility]) [address] [place], [address], 02/23/2024 08:26:17 02/22/20 24 02/23/2024 LIPID PANEL WITH LDL/H DL RATIO HDL cholesterol 42 mg/dL >39 Not Available [facility]) [address] [place], [address], 02/23/2024 08:26:17 02/22/20 24 02/23/2024 LIPID PANEL WITH LDL/H DL RATIO VLDL cholesterol maverick 27 mg/dL 5-40 Not Available [facility] ([facility]) [address] [place], [address], 02/23/2024 08:26:17 02/22/20 24 02/23/2024 LIPID PANEL WITH LDL/H DL RATIO [facility] mg/dL 0-99 above high normal Not Available [facility] ([facility]) [address] [place], [address], 02/23/2024 08:26:17 02/22/20 24 02/23/2024 LIPID PANEL WITH LDL/H DL RATIO LDL/HDL ratio 4.0 ratio 0.0-3. 2 above high normal LDL/H DL Ratio Men Women 1/2 Avg.R isk 1.0 1.5 Avg.R isk 3.6 3.2 2X Avg.R isk 6.2 5.0 3X Avg.R isk 8.0 6.1 Not Available [facility] ([facility]) [address] [place], [address], 02/23/2024 08:26:17 02/22/20 24 02/23/2024 COMP. METAB OLIC PANEL (14) glucose 94 mg/dL 70-99 Not Available [facility] ([facility]) [address] [place], [address], 02/23/2024 08:26:18 02/22/20 24 02/23/2024 COMP. METAB OLIC PANEL (14) BUN 8 mg/dL 6-24 Not Available [facility] ([facility]) [address] [place], [address], 02/23/2024 08:26:18 02/22/20 24 02/23/2024 COMP. METAB OLIC PANEL (14) creatinine 0.86 mg/dL 0.57-1 .00 Not Available [facility] ([facility]) [address] [place], [address], 02/23/2024 08:26:18 02/22/20 24 02/23/2024 COMP. METAB OLIC PANEL (14) eGFR 80 mL/mi n/1.7 3 >59 Not Available [facility] ([facility]) [address] [place], [address], 02/23/2024 08:26:18 02/22/20 24 02/23/2024 COMP. METAB OLIC PANEL (14) BUN/creatini ne ratio 9 9-23 Not Available [facility] ([facility]) [address] [place], [address], 02/23/2024 08:26:18 02/22/20 24 02/23/2024 COMP. METAB OLIC PANEL (14) sodium 140 mmol/ L 134-14 4 Not Available [facility] ([facility]) [address] [place], [address], 02/23/2024 08:26:18 02/22/20 24 02/23/2024 COMP. METAB OLIC PANEL (14) potassium 4.0 mmol/ L 3.5-5. 2 Not Available [facility] ([facility]) [address] [facility] [place], [address], 02/23/2024 08:26:18 02/22/20 24 02/23/2024 COMP. METAB OLIC PANEL (14) chloride 100 mmol/ L 96-106 Not Available [facility] ([facility]) [address] [place], [address], 02/23/2024 08:26:18 02/22/20 24 02/23/2024 COMP. METAB OLIC PANEL (14) carbon dioxide, total 26 mmol/ L 20-29 Not Available [facility] ([facility]) [address] [place], [address], 02/23/2024 08:26:18 02/22/20 24 02/23/2024 COMP. METAB OLIC PANEL (14) calcium 9.7 mg/dL 8.7-10 .2 Not Available [facility] ([facility]) [address] [place], [address], 02/23/2024 08:26:18 02/22/20 24 02/23/2024 COMP. METAB OLIC PANEL (14) protein, total 6.9 g/dL 6.0-8. 5 Not Available [facility] ([facility]) [address] [place], [address], 02/23/2024 08:26:18 02/22/20 24 02/23/2024 COMP. METAB OLIC PANEL (14) albumin 4.3 g/dL 3.8-4. 9 Not Available [facility] ([facility]) [address] [place], [address], 02/23/2024 08:26:18 02/22/20 24 02/23/2024 COMP. METAB OLIC PANEL (14) globulin, total 2.6 g/dL 1.5-4. 5 Not Available [facility] ([facility]) [address] [place], [address], 02/23/2024 08:26:18 02/22/20 24 02/23/2024 COMP. METAB OLIC PANEL (14) bilirubin, total 0.3 mg/dL 0.0-1. 2 Not Available [facility] ([facility]) [address] [place], [address], 02/23/2024 08:26:18 02/22/20 24 02/23/2024 COMP. METAB OLIC PANEL (14) alkaline phosphatase 84 IU/L 44-121 Not Available [facility] [address] [place], [address], 02/23/2024 08:26:18 02/22/20 24 02/23/2024 COMP. METAB OLIC PANEL (14) AST (SGOT) 26 IU/L 0-40 Not Available [facility] ([facility]) [address] [place], [address], 02/23/2024 08:26:18 02/22/20 24 02/23/2024 COMP. METAB OLIC PANEL (14) ALT (SGPT) 21 IU/L 0-32 Not Available [facility] ([facility]) [address] [place], [address], 02/23/2024 08:26:18 02/22/20 24 02/23/2024 HEMOG LOBIN A1C hemoglobin A1C 6.1 % 4.8-5. 6 above high normal Predi abete s: 5.7 - 6.4 Diabe polina: >6.4 [place] contr ol for adult s with diabe polina: <7.0 Not Available [facility] ([facility]) [address] [place], [address], 02/23/2024 08:26:18 02/22/20 24 02/23/2024 CBC WITH DIFFE RENTI AL/PL ATELE T WBC 8.1 x10e3 /uL 3.4-10 .8 Not Available [facility] ([facility]) [address] [place], [address], 02/23/2024 08:26:19 02/22/20 24 02/23/2024 CBC WITH DIFFE RENTI AL/PL ATELE T RBC 4.84 x10e6 /uL 3.77-5 .28 Not Available [facility] ([facility]) [address] [place], [address], 02/23/2024 08:26:19 02/22/20 24 02/23/2024 CBC WITH DIFFE RENTI AL/PL ATELE T hemoglobin 14.6 g/dL 11.1-1 5.9 Not Available [facility] ([facility]) [address] [place], [address], 02/23/2024 08:26:19 02/22/20 24 02/23/2024 CBC WITH DIFFE RENTI AL/PL ATELE T hematocrit 44.5 % 34.0-4 6.6 Not Available [facility] ([facility]) [address] [place], [address], 02/23/2024 08:26:19 02/22/20 24 02/23/2024 CBC WITH DIFFE RENTI AL/PL ATELE T MCV 92 fL 79-97 Not Available [facility] ([facility]) [address] [place], [address], 02/23/2024 08:26:19 02/22/20 24 02/23/2024 CBC WITH DIFFE RENTI AL/PL ATELE T MCH 30.2 pg 26.6-3 3.0 Not Available [facility] ([facility]) [address] [facility], [place], [address], 02/23/2024 08:26:19 02/22/20 24 02/23/2024 CBC WITH DIFFE RENTI AL/PL ATELE T MCHC 32.8 g/dL 31.5-3 5.7 Not Available [facility] ([facility]) [address] [facility], [place], [address], 02/23/2024 08:26:19 02/22/20 24 02/23/2024 CBC WITH DIFFE RENTI AL/PL ATELE T RDW 12.7 % 11.7-1 5.4 Not Available [facility] ([facility]) [address] [facility], [place], [address], 02/23/2024 08:26:19 02/22/20 24 02/23/2024 CBC WITH DIFFE RENTI AL/PL ATELE T platelets 220 x10e3 /uL 150-45 0 Not Available [facility] ([facility]) [address] [facility], [place], [address], 02/23/2024 08:26:19 02/22/20 24 02/23/2024 CBC WITH DIFFE RENTI AL/PL ATELE T neutrophils 59 % notest ab. Not Available [facility] ([facility]) [address] [facility], [place], [address], 02/23/2024 08:26:19 02/22/20 24 02/23/2024 CBC WITH DIFFE RENTI AL/PL ATELE T lymphs 33 % notest ab. Not Available [facility] ([facility]) [address] [facility], [place], [address], 02/23/2024 08:26:19 02/22/20 24 02/23/2024 CBC WITH DIFFE RENTI AL/PL ATELE T monocytes 7 % notest ab. Not Available [facility] ([facility]) [address] [facility], [place], [address], 02/23/2024 08:26:19 02/22/20 24 02/23/2024 CBC WITH DIFFE RENTI AL/PL ATELE T eos 1 % notest ab. Not Available [facility] ([facility]) [address] [facility], [place], [address], 02/23/2024 08:26:19 02/22/20 24 02/23/2024 CBC WITH DIFFE RENTI AL/PL ATELE T basos 0 % notest ab. Not Available [facility] ([facility]) [address] [facility], [place], [address], 02/23/2024 08:26:19 02/22/20 24 02/23/2024 CBC WITH DIFFE RENTI AL/PL ATELE T neutrophils (absolute) 4.7 x10e3 /uL 1.4-7. 0 Not Available [facility] ([facility]) [address] [facility], [place], [address], 02/23/2024 08:26:19 02/22/20 24 02/23/2024 CBC WITH DIFFE RENTI AL/PL ATELE T lymphs (absolute) 2.7 x10e3 /uL 0.7-3. 1 Not Available [facility] ([facility]) [address] [facility], [place], [address], 02/23/2024 08:26:19 02/22/20 24 02/23/2024 CBC WITH DIFFE RENTI AL/PL ATELE T monocytes(ab solute) 0.6 x10e3 /uL 0.1-0. 9 Not Available [facility] ([facility]) [address] [facility], [place], [address], 02/23/2024 08:26:19 02/22/20 24 02/23/2024 CBC WITH DIFFE RENTI AL/PL ATELE T eos (absolute) 0.1 x10e3 /uL 0.0-0. 4 Not Available [facility] ([facility]) [address] [place], [address], 02/23/2024 08:26:19 02/22/20 24 02/23/2024 CBC WITH DIFFE RENTI AL/PL ATELE T baso (absolute) 0.0 x10e3 /uL 0.0-0. 2 Not Available [facility] ([facility]) [address] [facility], [place], [address], 02/23/2024 08:26:19 02/22/20 24 02/23/2024 CBC WITH DIFFE RENTI AL/PL ATELE T immature granulocytes 0 % notest ab. Not Available [facility] ([facility]) [address] [place], [address], 02/23/2024 08:26:19 02/22/20 24 02/23/2024 CBC WITH DIFFE RENTI AL/PL ATELE T immature grans (abs) 0.0 x10e3 /uL 0.0-0. 1 Not Available [facility] ([facility]) [address] [facility], [place], [address], 02/23/2024 08:26:19 06/20/20 24 06/20/2024 HbA1c (hemo globi n A1c), blood HbA1c 5.7% Not Available In-Office Order Internal Use Only DO Not Attach Compendium DO Not Attach Compendium, Do Not Delete/merge, [id number] 06/20/2024 09:08:32 03/18/2003/19/2025 TSH+F REE T4 TSH 1.630 uIU/m L 0.450- 4.500 Not Available [facility] ([facility]) [address] [place], [address], 03/19/2025 09:14:12 03/18/20 25 03/19/2025 TSH+F REE T4 T4,free(dire ct) 1.00 NG/dL 0.82-1 .77 Not Available [facility] ([facility]) [address] [place], [address], 03/19/2025 09:14:12 03/18/20 25 03/19/2025 LIPID PANEL WITH LDL/H DL RATIO cholesterol, total 207 mg/dL 100-19 9 above high normal Not Available [facility] ([facility]) [address] [place], [address], 03/19/2025 09:14:13 03/18/20 25 03/19/2025 LIPID PANEL WITH LDL/H DL RATIO triglyceride s 129 mg/dL 0-149 Not Available [facility] ([facility]) [address] [place], [address], 03/19/2025 09:14:13 03/18/20 25 03/19/2025 LIPID PANEL WITH LDL/H DL RATIO HDL cholesterol 43 mg/dL >39 Not Available [facility]) [address] [place], [address], 03/19/2025 09:14:13 03/18/20 25 03/19/2025 LIPID PANEL WITH LDL/H DL RATIO VLDL cholesterol maverick 23 mg/dL 5-40 Not Available [facility] ([facility]) [address] [place], [address], 03/19/2025 09:14:13 03/18/20 25 03/19/2025 LIPID PANEL WITH LDL/H DL RATIO LDL [facility] 141 mg/dL 0-99 above high normal Not Available [facility] ([facility]) [address] [place], [address], 03/19/2025 09:14:13 03/18/20 25 03/19/2025 LIPID PANEL WITH LDL/H DL RATIO LDL/HDL ratio 3.3 ratio 0.0-3. 2 above high normal LDL/H DL Ratio Men Women 1/2 Avg.R isk 1.0 1.5 Avg.R isk 3.6 3.2 2X Avg.R isk 6.2 5.0 3X Avg.R isk 8.0 6.1 Not Available [facility] ([facility]) [address] [facility], [place], [address], 03/19/2025 09:14:13 03/18/20 25 03/19/2025 COMP. METAB OLIC PANEL (14) glucose 96 mg/dL 70-99 Not Available [facility] ([facility]) [address] [place], [address], 03/19/2025 09:14:14 03/18/20 25 03/19/2025 COMP. METAB OLIC PANEL (14) BUN 10 mg/dL 6-24 Not Available [facility] ([facility]) [address] [place], [address], 03/19/2025 09:14:14 03/18/20 25 03/19/2025 COMP. METAB OLIC PANEL (14) creatinine 0.91 mg/dL 0.57-1 .00 Not Available [facility] ([facility]) [address] [place], [address], 03/19/2025 09:14:14 03/18/20 25 03/19/2025 COMP. METAB OLIC PANEL (14) eGFR 75 mL/mi n/1.7 3 >59 Not Available [facility] ([facility]) [address] [place], [address], 03/19/2025 09:14:14 03/18/20 25 03/19/2025 COMP. METAB OLIC PANEL (14) BUN/creatini ne ratio 11 9-23 Not Available [facility] ([facility]) [address] [place], [address], 03/19/2025 09:14:14 03/18/20 25 03/19/2025 COMP. METAB OLIC PANEL (14) sodium 141 mmol/ L 134-14 4 Not Available [facility] ([facility]) [address] [facility] [place], [address], 03/19/2025 09:14:14 03/18/20 25 03/19/2025 COMP. METAB OLIC PANEL (14) potassium 4.3 mmol/ L 3.5-5. 2 Not Available [facility] ([facility]) [address] [place], [address], 03/19/2025 09:14:14 03/18/2003/19/2025 COMP. METAB OLIC PANEL (14) chloride 103 mmol/ L 96-106 Not Available [facility] ([facility]) [address] [place], [address], 03/19/2025 09:14:14 03/18/2003/19/2025 COMP. METAB OLIC PANEL (14) carbon dioxide, total 25 mmol/ L 20-29 Not Available [facility] ([facility]) [address] [place], [address], 03/19/2025 09:14:14 03/18/20 25 03/19/2025 COMP. METAB OLIC PANEL (14) calcium 9.7 mg/dL 8.7-10 .2 Not Available [facility] ([facility]) [address] [place], [address], 03/19/2025 09:14:14 03/18/2003/19/2025 COMP. METAB OLIC PANEL (14) protein, total 6.3 g/dL 6.0-8. 5 Not Available [facility] ([facility]) [address] [place], [address], 03/19/2025 09:14:14 03/18/20 25 03/19/2025 COMP. METAB OLIC PANEL (14) albumin 4.2 g/dL 3.8-4. 9 Not Available [facility] ([facility]) [address] [place], [address], 03/19/2025 09:14:14 03/18/2003/19/2025 COMP. METAB OLIC PANEL (14) globulin, total 2.1 g/dL 1.5-4. 5 Not Available [facility] ([facility]) [address] [place], [address], 03/19/2025 09:14:14 03/18/2003/19/2025 COMP. METAB OLIC PANEL (14) bilirubin, total <0.2 mg/dL 0.0-1. 2 Not Available [facility] ([facility]) [address] [place], [address], 03/19/2025 09:14:14 03/18/2003/19/2025 COMP. METAB OLIC PANEL (14) alkaline phosphatase 82 IU/L 44-121 Not Available [facility] [address] [place], [address], 03/19/2025 09:14:14 03/18/2003/19/2025 COMP. METAB OLIC PANEL (14) AST (SGOT) 25 IU/L 0-40 Not Available [facility] ([facility]) [address] [place], [address], 03/19/2025 09:14:14 03/18/2003/19/2025 COMP. METAB OLIC PANEL (14) ALT (SGPT) 24 IU/L 0-32 Not Available [facility] ([facility]) [address] [place], [address], 03/19/2025 09:14:14 03/18/2003/19/2025 HEMOG LOBIN A1C hemoglobin A1C 5.7 % 4.8-5. 6 above high normal Predi abete s: 5.7 - 6.4 Diabe polina: >6.4 [place] contr ol for adult s with diabe polina: <7.0 Not Available [facility] ([facility]) [address] [facility], [place], [address], 03/19/2025 09:14:15 03/18/2003/19/2025 CBC WITH DIFFE RENTI AL/PL ATELE T WBC 7.8 x10e3 /uL 3.4-10 .8 Not Available [facility] ([facility]) [address] [facility], [place], [address], 03/19/2025 09:14:16 03/18/2003/19/2025 CBC WITH DIFFE RENTI AL/PL ATELE T RBC 4.57 x10e6 /uL 3.77-5 .28 Not Available [facility] ([facility]) [address] [facility], [place], [address], 03/19/2025 09:14:16 03/18/2003/19/2025 CBC WITH DIFFE RENTI AL/PL ATELE T hemoglobin 13.8 g/dL 11.1-1 5.9 Not Available [facility] ([facility]) [address] [facility], [place], [address], 03/19/2025 09:14:16 03/18/2003/19/2025 CBC WITH DIFFE RENTI AL/PL ATELE T hematocrit 43.2 % 34.0-4 6.6 Not Available [facility] ([facility]) [address] [place], [address], 03/19/2025 09:14:16 03/18/2003/19/2025 CBC WITH DIFFE RENTI AL/PL ATELE T MCV 95 fL 79-97 Not Available [facility] ([facility]) [address] [place], [address], 03/19/2025 09:14:16 03/18/2003/19/2025 CBC WITH DIFFE RENTI AL/PL ATELE T MCH 30.2 pg 26.6-3 3.0 Not Available [facility] ([facility]) [address] [facility], [place], [address], 03/19/2025 09:14:16 03/18/20 25 03/19/2025 CBC WITH DIFFE RENTI AL/PL ATELE T MCHC 31.9 g/dL 31.5-3 5.7 Not Available [facility] ([facility]) [address] [facility], [place], [address], 03/19/2025 09:14:16 03/18/2003/19/2025 CBC WITH DIFFE RENTI AL/PL ATELE T RDW 13.0 % 11.7-1 5.4 Not Available [facility] ([facility]) [address] [facility], [place], [address], 03/19/2025 09:14:16 03/18/2003/19/2025 CBC WITH DIFFE RENTI AL/PL ATELE T platelets 204 x10e3 /uL 150-45 0 Not Available [facility] ([facility]) [address] [facility], [place], [address], 03/19/2025 09:14:16 03/18/2003/19/2025 CBC WITH DIFFE RENTI AL/PL ATELE T neutrophils 49 % notest ab. Not Available [facility] ([facility]) [address] [place], [address], 03/19/2025 09:14:16 03/18/2003/19/2025 CBC WITH DIFFE RENTI AL/PL ATELE T lymphs 42 % notest ab. Not Available [facility] ([facility]) [address] [facility], [place], [address], 03/19/2025 09:14:16 03/18/20 25 03/19/2025 CBC WITH DIFFE RENTI AL/PL ATELE T monocytes 7 % notest ab. Not Available [facility] ([facility]) [address] [facility], [place], [address], 03/19/2025 09:14:16 03/18/2003/19/2025 CBC WITH DIFFE RENTI AL/PL ATELE T eos 2 % notest ab. Not Available [facility] ([facility]) [address] [facility], [place], [address], 03/19/2025 09:14:16 03/18/2003/19/2025 CBC WITH DIFFE RENTI AL/PL ATELE T basos 0 % notest ab. Not Available [facility] ([facility]) [address] [facility], [place], [address], 03/19/2025 09:14:16 03/18/2003/19/2025 CBC WITH DIFFE RENTI AL/PL ATELE T neutrophils (absolute) 3.8 x10e3 /uL 1.4-7. 0 Not Available [facility] ([facility]) [address] [facility], [place], [address], 03/19/2025 09:14:16 03/18/2003/19/2025 CBC WITH DIFFE RENTI AL/PL ATELE T lymphs (absolute) 3.2 x10e3 /uL 0.7-3. 1 above high normal Not Available [facility] ([facility]) [address] [facility], [place], [address], 03/19/2025 09:14:16 03/18/2003/19/2025 CBC WITH DIFFE RENTI AL/PL ATELE T monocytes(ab solute) 0.5 x10e3 /uL 0.1-0. 9 Not Available [facility] ([facility]) [address] [facility], [place], [address], 03/19/2025 09:14:16 03/18/2003/19/2025 CBC WITH DIFFE RENTI AL/PL ATELE T eos (absolute) 0.2 x10e3 /uL 0.0-0. 4 Not Available [facility] ([facility]) [address] [place], [address], 03/19/2025 09:14:16 03/18/2003/19/2025 CBC WITH DIFFE RENTI AL/PL ATELE T baso (absolute) 0.0 x10e3 /uL 0.0-0. 2 Not Available [facility] ([facility]) [address] [facility], [place], [address], 03/19/2025 09:14:16 03/18/2003/19/2025 CBC WITH DIFFE RENTI AL/PL ATELE T immature granulocytes 0 % notest ab. Not Available [facility] ([facility]) [address] [facility], [place], [address], 03/19/2025 09:14:16 03/18/2003/19/2025 CBC WITH DIFFE RENTI AL/PL ATELE T immature grans (abs) 0.0 x10e3 /uL 0.0-0. 1 Not Available [facility] ([facility]) [address] [place], [address], 03/19/2025 09:14:16 03/18/2003/19/2025 VITAM IN D, 25-HY DROXY vitamin D, 25-hydroxy 43.4 NG/mL 30.0-1 00.0 Vitam in D defic iency has been defin ed by the Insti tute of Medic ine and an Endoc rine Socie ty pract ice guide line as a level of serum 25-OH vitam in D less than 20 ng/mL (1,2) . The Endoc rine Socie ty went on to furth er defin e vitam in D insuf ficie ncy as a level betwe en 21 and 29 ng/mL (2). 1. IOM (Inst itute of Medic ine). 2010. Katelynna ry refer ence genesis es for calci um and D. Nallely cho [place]: [employer] . 2. Robin k MF, Binkl ey [place], Bisch off-F errar i CYR, et al. Evalu ation , treat ment, and preve ntion of vitam in D defic iency : an Endoc rine Socie ty clini maverick pract ice guide line. JCEM. 2010; 96(7) :1911 -30. Not Available [facility] ([facility]) [address], [place], [address], 03/19/2025 09:14:17 01/29/20 24 01/28/2024 MAMMO , scree celestino, bilat eral No observ ation record ed. [id number] [address], [place], [address], 01/30/2024 09:45:40 04/23/20 24 04/23/2024 XR, chest , 2 view No observ ation record ed. [address], [place], [address], 04/23/2024 14:32:16 06/30/20 25 06/30/2025 MAMMO , scree celestino, bilat eral No observ ation record ed. [facility] [address], [place], [address], 06/30/2025 17:57:30 Result Notes None recorded. Problems Name Problem SNOMED Code Status Onset Date Resolution Date Notes Provider Name and Address Organization Details Recorded Time Allergy Active Seasonal allergies Aylin Farley MA null, [place] - [facility] 6 16:36:04 Hyperchol esterolem ia 29404274 Active History of Ryan Cortez MD Attn: Accounting ,[address], [place], [address] , [facility] - [facility] 17:18:28 Swelling 05073110 Active Aylin Farley MA null, [place] - [facility] 6 16:36:04 Distensio n of abdomen Active Aylin Far[place] null, [place] - [facility] 6 16:36:04 Gastroeso phageal reflux disease 322737872 Active Ryan Cortez MD Attn: Accounting ,[address] [place], [address] , [place] [facility] 6 17:18:28 Internal hemorrhoi ds 70363563 Active Aylin Far[place], [place] [facility] 6 16:36:04 Irritable bowel syndrome 08467311 Active Aylin Far[place], [place] [facility] 6 16:36:04 Uterine leiomyoma 05375285 Active Ryan Cortez MD Attn: Accounting ,[address] [place], [address] , [place] [facility] 6 17:18:28 Prediabet es 543073734 Active 2016 Natalie Millard RN [place], [place] [facility] 7 13:13:29 Vitamin D deficienc y 72628041 Active 2018 Natalie Millard RN [place], [place] [facility] 9 16:16:08 Iron deficienc y anemia 73099696 Active 2021 PAPI NINO Attn: Accounting ,[address] [place], [address] , [place] [facility] 2 21:44:45 Screening for malignant neoplasm of colon Active 2022 records in chart, repeat 2029 PAPI NINO Attn: Accounting ,[address] [place], [address] , [place] [facility] 5 10:40:22 Problem Notes None recorded. Procedures Surgical History Date Name Laterality Status Provider Name and Address Organization Details Recorded Time Caesarean Section completed Aylin Farley [place] - [facility] 10/12/2014 13:39:28 Imaging Results None recorded. Procedure Notes None recorded. Medical Equipment None Reported. Allergies Allergen ID Allergen Name Allergen Category Reaction Reaction Severity Criticality Documentation Date Start Date Code Code System Note Provider Name and Address Organization Details Recorded Time Substance with sulfonami de structure and antibacte rial mechanism of action (substanc e) medicatio n Not available Not available Not available 10/12/2014 59613 8003 SNOMED Aylin Farley MA [facility], [place] - [facility] 5 13:39:28 Medications Name Sig Start Date Stop Date Status Note LastModified by Organization Details LastModified Time azithromy nara 250 mg tablet active Not Available Not Available No t Available Lidocaine Viscous 2 % mucosal solution TAKE 30 ML BY MOUTH TWICE DAILY (this is a 1 to 1 mixture of viscous lidocain e 2% and Mylanta) 05/25 completed Not Available Not Available Not Available famotidin e 40 mg tablet Take 1 tablet twice a day by oral route as directed for 30 days. 05/25 completed Not Available Not Available Not Available pantopraz ole 20 mg tablet,de layed release Take 2 tablets every day by oral route in the morning for 30 days, for acid reflux. 06/20 completed Not Available Not Available Not Available famotidin e 20 mg tablet Take 1 tablet every day by oral route at dinner for 30 days, for acid reflux. 2024 active Not Available Not Available Not Avai lable hyoscyami ne ER 0.375 mg tablet,ex tended release,1 2 hr Take 1 tablet twice a day by oral route for 30 days. 01/22 completed Not Available Not Available Not Available ferrous sulfate 325 mg (65 mg iron) tablet Take 1 tablet 3 times a week by oral route before meal(s) for 30 days. 02/23 completed Not Available Not Available Not Available esomepraz ole magnesium 40 mg capsule,d elayed release 01/09 completed not covered per insuranc e (ordered Omeprazo le 01/21/16) Not Available Not Available Not Available ranitidin e 150 mg tablet take one tablet by mouth twice daily 05/25 completed Not Available Not Available Not Available omeprazol e 20 mg capsule,d elayed release Take 1 capsule every day by oral route for 30 days. 01/08 completed not coveredp er ins Not Available Not Available Not Available monteluka st 10 mg tablet Take 1 tablet every day by oral route in the morning for 30 days, for nasal congesti on. 06/20 completed Not Available Not Available Not Available polyethyl josseline glycol 3350 17 gram/dose oral powder mix 17 grams with glass of liquid and drink one time daily (for constipa tion) 05/25 completed Not Available Not Available Not Available Vitamin D2 1,250 mcg (50,000 unit) capsule Take 1 capsule every week by oral route for 30 days. 08/23 completed Not Available Not Available Not Available esomepraz ole magnesium 20 mg capsule,d elayed release Take 1 capsule every day by oral route for 30 days. 08/23 completed Not Available Not Available Not Available omeprazol e 20 mg tablet,de layed release Take 1 tablet every day by oral route for 30 days. 01/09 completed Not Available Not Available Not Available Linzess 145 mcg capsule Take 1 capsule every day by oral route as needed for 30 days. 05/25 completed Not Available Not Available Not Available Nexium 24HR 22.3 mg capsule,d elayed release Take 1 capsule every day by oral route. 05/25 completed Not Available Not Available Not Available Nexium 24HR 20 mg tablet,de layed release Take 2 tablets every day by oral route. 05/25 completed Not Available Not Available Not Available Vitals Date Recorded Systolic And Diastolic Provider Name and Address Organization Details Last Updated DateTime 12/10/2024 106/70 mm[Hg] PAPI NINO Attn: Accounting,[address] [place], [address], [place] 12/10/2024 10:49:31 Date Recorded Body height Body mass index (BMI) Body weight Oxygen saturation Oxygen saturation in Arterial blood by Pulse oximetry Heart rate Respiratory rate Provider Name and Address Organization Details Last Updated DateTime 157.48 cm 29.8 kg/m2 57946.5 6 g 97 % 97 % 88 /min 16 /min Deandra Aragon [place] - [facility] 04/02/202 5 10:30:21 Date Recorded Body height Body mass index (BMI) Body weight Oxygen saturation Oxygen saturation in Arterial blood by Pulse oximetry Heart rate Respiratory rate Systolic And Diastolic Provider Name and Address Organization Details Last Updated DateTime 5 157.48 cm 30.9 kg/m2 59787.1 1 g 98 % 98 % 71 /min 16 /min 133/77 mm[Hg] Deandra Aragon MA [facility] 5 12:02:35 Date Recorded Body height Body mass index (BMI) Body weight Oxygen saturation Oxygen saturation in Arterial blood by Pulse oximetry Heart rate Respiratory rate Systolic And Diastolic Provider Name and Address Organization Details Last Updated DateTime 4 157.48 cm 31 kg/m2 40242.5 1 g 97 % 97 % 91 /min 16 /min 129/84 mm[Hg] Birgit Bhandari MA [facility] 4 11:54:36 Date Recorded Body height Body mass index (BMI) Body weight Respiratory rate Oxygen saturation Oxygen saturation in Arterial blood by Pulse oximetry Heart rate Systolic And Diastolic Provider Name and Address Organization Details Last Updated DateTime 4 157.48 cm 30.2 kg/m2 63357.4 9 g 18 /min 98 % 98 % 85 /min 123/81 mm[Hg] Deandra Aragon MA [facility] 4 09:02:19 Social History Question Answer Notes LastModified by Organizat ion Details LastModified Time Tobacco Smoking Status Never Smoker DARINEL Seay, [facility] 10/12/2014 13:40:36 Do You Have An Advance Directive? No Information n ot available 05/25/2022 Are You Blind Or Do You Have Difficulty Seeing? No Information n ot available 05/25/2022 In The 14 Days Before Symptom Onset, Have You Had Close Contact With A Laboratory-confirm ed COVID-19 While That Case Was Ill? No Information n ot available 05/25/2022 In The 14 Days Before Symptom Onset, Have You Had Close Contact With A Person Who Is Under Investigation For COVID-19 While That Person Was Ill? No Information not available 05/25/2022 Have You Been To An Area Known To Be High Risk For COVID-19? No Information not available 05/25/2022 Are You Deaf Or Do You Have Serious Difficulty Hearing? No Information not available 05/25/2022 What Type Of Diet Are You Following? REGULAR Information n ot available 05/25/2022 Are There Any Guns Present In Your Home? No Information not available 05/25/2022 What Was The Date Of Your Most Recent Tobacco Screening? 12/10/2024 Information not available 12/10/2024 What Is Your Relationship Status? Single Information not available 05/25/2022 Do You Have Smoke And Carbon Monoxide Detectors In Your Home? Yes Information not available 05/25/2022 Are You Passively Exposed To Smoke? Yes Information no t available 05/25/2022 Do You Use Sunscreen Routinely? No Information not available 05/25/2022 Has Tobacco Cessation Counseling Been Provided? Yes [email or web address] Information not available 08/23/2023 On What Date Was Tobacco Cessation Counseling Provided? 12/10/2024 Information not available 12/10/2024 Sex: Male Functional Status Question Answer Note LastModified by Organizat ion Details LastModified Time What is your level of alcohol consumption? None [email or web address] Information not available 08/23/2023 Are you currently employed? Yes Information not available 05/25/2022 Are you able to care for yourself independently? 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 Moderate Information not available 05/25/2022 Mental Status Question Answer Note LastModified by Organization D etails LastModified Time Do you feel stressed (tense, restless, nervous, or anxious, or unable to sleep at night)? [id number] Information not available 05/25/2022 Family History Relationship Description Onset Age of this Age Resolved Age Notes LastModified by Organization Details LastModified Time Mother Diabetes mellitus [email or web address] Not available 2015 16:36:04 Mother Hypertensive disorder [email or web address] Not available 2015 16:36:04 Mother Hypercholesmilo diallo [email or web address] Not available 2015 16:36:04 Medical History Condition Response Coronary Artery Disease N Other N Atrial Fibrillation N High Blood Pressure N Thyroid Problems N Kidney or Bladder Problems N Depression N COPD N Blood Clots N GI Problems N Skin Problems N Eating Disorder N Anemia N Heart Attack (RI) N Diabetes N Anxiety Disorder N Muscle, Joint, or Bone Problems N Seizures/Epilepsy N Acid Reflux (GERD) Y Cancer N Stroke N Allergies N Asthma N ADHD N Substance Abuse N High Cholesterol N Hepatitis N Liver Disease N Schizophrenia N Headaches N Osteoporosis N Heart Failure N Gynecological History Statement/Question Response Current Control Method Menopause Obstetrics History GPAL:G 1 P 0 0 0 1 Type Value Induced 0 Spontaneous 0 Living 1 Total 1 Immunizations Vaccine Type Date Status Note Provider Nam e and Address Organization Details Recorded Time COVID-19 vaccine, vector-nr, rS-Ad26, PF, 0.5 mL 11/12/2020 completed Not Available [facility] 5 15:15:56 Influenza, split virus, quadrivalent, PF 07/30/2017 completed Not Available [facility] 0 02:39:19 Influenza, split virus, trivalent, PF 06/20/2024 completed PAPI NINO Attn: Accounting,[address] [place], [address], [facility] 06/20/2024 09:56:32 Past Encounters Encounter ID Performer Location Encounter Start Date Encounter Closed Date Diagnosis/Indication Diagnosis SNOMED-CT Code Diagnosis ICD10 Code Diagnosis IMO Codes Diagnosis Note [id number] Ryan Cortez MD [facility] ([facility]) [address] [place] [address] 10/12/2014 12:17:01 10/12/2014 14:23:15 Allergy 769510571 Hypercholesterolemia 57883901 Swelling 45366612 [id number] Agnieszka Silverio MD [facility] [address] [place] [address] 02/26/2015 14:59:15 03/05/2015 10:02:02 Distension of abdomen 83841230 Gastroesop hageal reflux disease 087671226 [id number] [facility] [address] [place] [address] 8 04/30/2015 14:27:05 04/30/2015 16:19:17 Gastroesophageal reflux disease 629805356 Hypercholesterolemia 69608361 Allergy 214001965 Distension of abdomen 45031138 Internal hemorrhoids 92147401 [id number] Ryan Cortez MD [facility] ([facility]) [address] [place] [address] 8 05/21/2015 14:46:52 05/21/2015 15:57:16 Gastroesophageal reflux disease 599956279 Irritable bowel syndrome 99241625 Hypercholesterolemia 89268410 [id number] MD Kristyn Ferrera [facility]) [address] [place] [address] 8 08/31/2015 14:54:16 08/31/2015 16:30:10 Gastroesophageal reflux disease 571191523 K21.9 Z13.220 E78.2 R73.9 E56.9 Z00.00 Hypercholesterolemia 136 12886 E78.0 Irritable bowel syndrome 28096664 K58.9 Internal hemorrhoids 904 20638 K64.8 [id number] MD Kristyn Ferrera [facility] ([facility]) [address] [place] [address] 8 11/30/2015 15:06:16 11/30/2015 16:09:51 Distension of abdomen 10677804 R14.0 Gastroesop hageal reflux disease 869239896 K21.9 Z13.220 E78.2 R73.9 E56.9 Z00.00 Irritable bowel syndrome 49855667 K58.9 [id number] MD Kristyn Ferrera [facility]) [address] [place] [address] 8 03/01/2016 14:51:28 03/01/2016 17:19:03 Hypercholesterolemia 09734136 E78.0 Gastroesop hageal reflux disease 262015910 K21.9 Z13.220 E78.2 R73.9 E56.9 Z00.00 Uterine leiomyoma 075765 05 D25.9 [id number] Ryan Cortez MD [facility] ([facility]) [address] [place] [address] 8 12/15/2016 10:09:23 12/21/2016 11:00:40 Gastroesophageal reflux disease 596520937 K21.9 Z13.220 E78.2 R73.9 E56.9 Z00.00 [id number] Ryan Cortez MD [facility] ([facility]) [address] [place] [address] 8 01/22/2017 11:02:55 01/30/2017 11:20:05 Right upper quadrant pain 322590648 R10.11 Gastroesop hageal reflux disease 182160173 K21.9 Z13.220 E78.2 R73.9 E56.9 Z00.00 [id number] Ryan Cortez MD [facility] ([facility]) [address] [place] [address] 8 02/07/2017 14:54:20 02/09/2017 12:49:42 Gastroesophageal reflux disease 667825707 K21.9 Z13.220 E78.2 R73.9 E56.9 Z00.00 Atypical chest pain 1025 48152 R07.89 [id number] Ryan Cortez MD [facility] ([facility]) [address] [place] [address] 8 07/30/2017 14:12:54 08/01/2017 09:47:20 Administration of influenza vaccine 85779567 Z23 Gastroesop hageal reflux disease without esophagitis 245121101 K21.9 [id number] Ryan Cortez MD [facility] ([facility]) [address] [place] [address] 8 12/05/2017 11:28:27 12/13/2017 11:54:32 Irritable bowel syndrome 53967614 K58.9 [id number] MD Kristyn Ferrera [facility] ([facility]) [address] [place] [address] [place] [address] 03/07/2018 11:23:55 03/12/2018 09:41:31 Gastroesophageal reflux disease 305967201 K21.9 Z13.220 E78.2 R73.9 E56.9 Z00.00 Chronic constipation 236 992852 K59.09 [id number] Ryan Cortez MD [facility] ([facility]) [address] [place] [address] 04/24/2019 12:31:45 04/24/2019 17:43:16 Gastroesophageal reflux disease 454263215 K21.9 Z13.220 E78.2 R73.9 E56.9 Z00.00 Given nexium voucher. [id number] Juve rose MD [facility] [address] [place] [address] 05/25/2022 10:17:17 05/26/2022 12:36:09 Depression screening 154361398 Z13.31 PHQ 0 Abdominal pain 60735016 R10.9 upper abd pain x2 wksaching, not all the timecan occur right after eatingtrie d prilosec caused abd cramping, no relief with famotidine taking nexium PRNgood appetite- eating smaller portionscu tting back on sweetsnorm al BMs, brown, daily, smalllast saw Dr. Fortune had colonoscop y and endoscopy in 2019- irritation in esophagus, colonoscop y 2029no nausea/vom iting/diar glen/recta l bleedingPE x- nltake nexium everyday, can increase to 2 tabsf/u with Dr. Fortune if no relief Iron defic iency anemia 81042325 D50.9 once a yr IV iron infusionsf ollows with Dr David Serrano, next appt Jul 2022 Adult heal th examination 291553591 Z00.00 routine labs [id number] Juve rose MD [facility] [address] [place] [address] 08/23/2023 11:53:42 08/23/2023 12:44:02 Screening for malignant neoplasm of breast 560133379 Z12.39 due for mammo Screening for malignant neoplasm of cervix 336609310 Z12.4 last pap 1 yr agoPEx- sample taken for pap, white/viji r discharge from cervical os and surroundin g cervixsent nu swab Screening for malignant neoplasm of colon 827294930 Z12.11 had colonoscop y [address] Ruiz request records Iron defic iency anemia 34560592 D50.9 taking iron 3x weekfollow s with Dr David Cortez , had appt 07/2023 Depression screening 171 324601 Z13.31 PHQ 0 [id number] Juve rose MD [facility] [address] [place] [address] 02/22/2024 11:44:49 02/22/2024 12:14:25 Obesity 408930463 E66.8 routine labsdiscus sed increasing exercise and healthier food options, high protein, low fat diet Nasal congestion 7096717 0 R09.81 sinus headaches2 days per monthdenti rec'd ENT referraltr ial singulair Right uppe r quadrant pain 697899044 R10.11 intermitte ntworse after eating friend foodsPEx- nlpt requesting imaging Depression screening 171 198120 Z13.31 PHQ 0 [id number] José Miguel Au MD [facility] [address] [place] [address] 06/20/2024 08:53:23 06/20/2024 09:18:07 Prediabetes 806221298 R73.03 a1c today 5.7%02/2024 - 6.1% Gastroesop hageal reflux disease without esophagitis 762166932 K21.9 taking mylanta as neededrefu ses pantoprazo le due to side effectssta boone away from spicy foods, onions, tomato sauce Administra tion of influenza vaccine 32260316 Z23 [id number] José Miguel Au MD [facility] [address] [place] [address] 12/10/2024 10:24:25 12/10/2024 10:49:15 Gastroesophageal reflux disease without esophagitis 551338320 K21.9 12/10/24: x2 wks, RUQ, LUQ, epigastric areasharp, discomfort , comes and goesworse in the morningno concerning sx, good appetitePE x- nltrial famotidine daily for 2 wks, f/u if sx do not improve 06/20/24: taking mylanta as neededrefu ses pantoprazo le due to side effectssta boone away from spicy foods, onions, tomato sauce Depression screening 171 685186 Z13.31 PHQ 0 Overweight 485277236 E66 .3 [id number] José Miguel Au MD [facility] [address] [place] [address] 01/09/2025 11:55:27 01/09/2025 12:27:13 Screening for malignant neoplasm of breast 180579733 Z12.39 due for mammo Screening for malignant neoplasm of cervix 345218059 Z12.4 01/09/25: not due for pap until 08/2026PEx - nl 08/2023: last pap 1 yr agoPEx- sample taken for pap, white/viji r discharge from cervical os and surroundin g cervixsent nu swab [id number] José Miguel Au MD [facility] [address] [place] [address] 03/18/2025 15:13:06 03/18/2025 17:10:45 General examination of patient 771510104 Z00.00 [id number] routine labs Health Concerns Section Related Observation LastModified by Organization Detai ls LastModified Time None Recorded Concern Status LastModified by Organization Details LastModified Time None Recorded Advance Directives Directive N: Payers Insurance Date Sequence Insurance Name Policy Number Policy Caruso Covered Member ID Caruso Member ID Guarantor Name 03/18/2025 1 [facility] [id number] Tino Nettles [id number] Tino Nettles 05/25/2022 1 [facility] PRIOR TO 03/10/2021 (MEDICAID REPLACEMENT - HMO) Tino Nettles [id number] Tino Nettles 08/23/2023 2 *SELF PAY* Tahira Nettles 08/23/2023 SLIDING FEE SCHEDULE - DISCOUNT Tino Nettles 05/25/2022 1 [place]ICA[place]: [place] [employer] Tino Yoon [id number] Tino Yoon 01/22/2017 SLIDING FEE SCHEDULE - DISCOUNT Tino Yoon 01/19/2017 1 *SELF PAY* Tahira harding Yoon 05/25/2022 2 [facility] - DOS PRIOR TO 2021 (MEDICAID REPLACEMENT - HMO) Tino Yoon [id number] Tino Yoon 08/23/2023 1 [facility] ([facility] [id number] Tino Yoon [id number] Tino Yoon Notes Date Note Type Note Provider Name and Address Organization Details Recorded Time 02/22/2024 text/html ROS as noted in the HPI Pt presents with intermittent RUQ pain. Worse after eating fried foods and concerned for gall bladder issues. Denies fever, chills, chest pain, SOB, n/v/d, dizziness, weakness, or headaches. PAPI NINO Attn: Accounting[address] [place], [address], [facility] 02/24/2024 19:12:59 06/20/2024 text/html ROS as noted in the HPI Pt presents for acid reflux f/u. Reports two months ago she went to ED for chest pain and was diagnosed with acid reflux. ED told pt to buy OTC pepcid and she took it without relief. She was given pantoprazole script, but did not take it due to concern for side effects. Endorses that she has been controlling her symptoms with cutting out spicy foods, onions, and tomato sauce and taking mylanta PRN. PAPI NINO Attn: Accounting[address] [facility], [place], [address], [facility] - [facility] 06/20/2024 10:01:56 12/10/2024 text/html ROS as noted in the HPI Pt presents with abd pain x2 wks. Located below her R and L rib cage and below her sternum. Describes as discomfort, sharp, very quickly comes and goes. Symptoms are worse in the morning. Denies nausea, vomiting, or diarrhea. States that she has struggled with constipation as she got older. Increases her water intake, veggies, and drinks beet juice. No diet or medication changes. She has a good appetite, eating 2 meals/day. PAPI NINO Attn: Accounting[address] [facility], [place], [address], [facility] 12/10/2024 21:40:50 01/09/2025 text/html ROS as noted in the HPI Pt presents for WWE. Not due for pap until 08/2026. No dysuria, hematuria, vaginal discharge, odor, or irritation. Pt is due for mammogram. PAPI NINO Attn: Accounting[address] [facility], [place], [address], [facility] 01/09/2025 12:32:38 OBGyn Episode No OBEpisode recorded.
== END 2025-06-30 14:03 | disposition home or self-care (01) ==
PROVIDERS: PCP Physician Assistant; Visit Provider Physician Assistant
DX: Z12.31 Encounter for screening mammogram for malignant neoplasm of breast (principal)
CPT/HCPCS: 77063; 77067